=== PATIENT | female | born 1980 | race African-American/Black ===

== ENCOUNTER 2025-07-01 16:18 | Emergency (ER) | payer OTHER, SELFPAY ==
[2025-07-01 16:19] VITALS: BP 149/94; PULSE 87; RESP 16; TEMP 36.4; O2SAT 98
--- OUTSIDE RECORDS SUMMARY | 2025-07-01 18:29 | XMS_ITS | Data Portability ---
Author Organization [facility] Address [address] [place] [address] Assessment Encounter Date Assessment Date Assessment LastModified by Organization Details LastModified Time 01/01/2025 01/01/2025 Here for Spravato treatment PHQ 9 = 27 severe [email or web address] Not available 01/01/2025 23:49:46 01/08/2025 01/08/2025 Here for Spravato treatment PHQ 9 = 26 severe [email or web address] Not available 01/09/2025 00:25:05 01/15/2025 01/15/2025 Here for spravato treatment PHQ9=27 Annie was seen in the office today for Spravato treatment. Annie has a history of chronic hypertension and has had Spravato treatments canceled due to elevated blood pressures in the past. Annie states that her PCP increased her beta-alcides since her last visit. Annie's blood pressure on arrival to the office was 143/87. Blood pressure came down and was 129/86 on retake and decision was made to start treatment. 3 doses of Spravato was given. At 140 I was called to the patient's room and Annie states I do not know what is going on, I do not feel right I was unable to communicate with. Denied headaches, shortness of breath, or chest pain. Was oriented x 3. Blood pressure was 205/130 SaO2 99%. EMS notified. 1:45 blood pressure 192/126, at 1350 EMS here blood pressure 172/112 SaO2 99%. Annie speaking with EMS. 1400 blood pressure 164/112 EMS staff remains in the room, Annie declines transfer. Annie denies any headaches shortness of breath or chest pain. Alert and oriented x 3. 1408 blood pressure 164/108 SaO2 98%. 1434 EMS has left 146/95, heart rate 45. SaO2 97%. 1517 blood pressure 121/89 heart rate 102, SaO2 99%. Annie's daughter is here, discussed with her blood pressure occurrence and recommended going to hospital for evaluation. 1530 blood pressure 158/102. Annie Up and About in room and ready to go home. 1545 153/90. Discussed with Annie need to discharge from Spravato program due to severe hypertension [email or web address] Not available 01/16/2025 15:24:32 Plan of Treatment Reminders Order Date Submit Date Provider Last Modified By Organization Details Last Modified Time Details Appointments None record ed. Lab None record ed. Referral None record ed. Procedures None record ed. Surgeries None record ed. Imaging None record ed. Medication Orders None record ed. Patient TargetsNo targets recorded. Patient InstructionsNo instructions recorded. Reason for Referral None Reported. Problems Name Problem SNOMED Code Status Onset Date Resolution Date Notes Provider Name and Address Organization Details Recorded Time Severe recurrent major depression without psychotic features 93046328 Active 2024 Supriya Shah CNM, [facility] [address], [place], [address], [facility] 11:15:47 Elevated blood-pressu re reading without diagnosis of hypertension 748251064 Active 2024 Supriya Shah CNM, [facility]- [address], [place], [address], [facility] 21:54:07 Moderately severe recurrent major depression 837428590 Active 2024 Supriya Shah CNM, [facility]- [address], [place], [address], [facility] 10:48:07 Blood pressure above reference range 90844702 Active 2024 Sup[facility] Shah CNM, [facility] [address], [place], [address], [facility] 5 23:58:13 Essential hypertension 56668055 Active 2024 Supriya Shah CNM, [facility] [address], [place], [address], [facility] 5 12:29:13 Hypertensive disorder 58761107 Active 2024 Supriya Shah CNM, [facility] [address], [place], [address], [facility] 15:03:52 Problem Notes None recorded. Procedures Surgical History Date Name Laterality Status Provider Name and Address Organization Details Recorded Time 06/16/20 24 Colonoscopy completed Miranda Lynn [facility] 01/15/2025 14:14:51 hysterectomy completed [facility] 12/04/2024 09:07:31 dilation and curettage completed [facility] 12/04/2024 09:07:36 Imaging Results None recorded. Procedure Notes None recorded. Medical Equipment None Reported. Allergies Allergen ID Allergen Name Allergen Category Reaction Reaction Severity Criticality Documentation Date Start Date Code Code System Note Provider Name and Address Organization Details Recorded Time 2162 Substance with sulfonami de structure and antibacte rial mechanism of action (substanc e) medicatio n Not available Not available Not available 12/04/2024 64625 8003 SNOMED Rafia Andrews [facility] 09:04:16 2163 vancomyci n medicatio n Not available Not available Not available 12/04/2024 59789 RxNorm Rafia Andrews [facility] 09:04:22 Medications Name Sig Start Date Stop Date Status Note LastModified by Organization Details LastModified Time celecoxib 200 mg capsule active Not Available Not Available Not Available amoxicillin 500 mg capsule TAKE ONE CAPSULE BY MOUTH THREE TIMES DAILY 01/15 completed Not Available Not Available Not Available venlafaxine ER 37.5 mg capsule,ext ended release 24 hr TAKE 1 CAPSULE BY MOUTH DAILY THEN STOP 01/15 completed Not Available Not Available Not Available venlafaxine ER 75 mg capsule,ext ended release 24 hr 01/15 completed Not Available Not Available Not Available lisinopril 20 mg-hydrochl orothiazide 12.5 mg tablet TAKE 1 TABLET BY MOUTH DAILY active Not Available Not Available No t Available ibuprofen 800 mg tablet TAKE 1 TABLET BY MOUTH EVERY 8 HOURS active Not Available Not Available No t Available tizanidine 4 mg tablet active Not Available Not Available Not Available prazosin 1 mg capsule TAKE 1-2 CAPSULES AT BEDTIME FOR NIGHTMARE S active Not Available Not Available No t Available naltrexone 50 mg tablet active Not Available Not Available Not Available propranolol ER 60 mg capsule,24 hr,extended release active Not Available Not Available Not Available triazolam 0.125 mg tablet 01/15 completed Not Available Not Available Not Available venlafaxine ER 150 mg capsule,ext ended release 24 hr 01/15 completed Not Available Not Available Not Available acetaminoph en 300 mg-codeine 15 mg tablet TAKE 1 TABLET BY MOUTH EVERY 12 HOURS FOR 7 DAYS 01/15 completed Not Available Not Available Not Available peg-electro lyte solution 420 gram oral solution MIX AND DRINK DIRECTED 01/15 completed Not Available Not Available Not Available amoxicillin 500 mg tablet TAKE 1 TABLET BY MOUTH EVERY 8 HOURS 01/15 completed Not Available Not Available Not Available alprazolam 0.25 mg tablet active Not Available Not Available Not Available trazodone 100 mg tablet TAKE 1 TABLET BY MOUTH NIGHTLY 01/15 completed Not Available Not Available Not Available carbamazepi ne ER 200 mg tablet,exte nded release,12 hr TAKE 1 TABLET BY MOUTH TWICE A DAY active Not Available Not Available No t Available pantoprazol e 40 mg tablet,elena yed release TAKE 1 TABLET BY MOUTH EVERY DAY active Not Available Not Available No t Available indomethaci n 25 mg capsule active Not Available Not Available Not Available gabapentin 300 mg capsule TAKE 1 CAPSULE BY MOUTH THREE TIMES A DAY NEEDED active Not Available Not Available No t Available hydroxyzine HCl 25 mg tablet 01/15 completed Not Available Not Available Not Available bisacodyl 5 mg tablet,elena yed release TAKE DIRECTED BY OFFICE 01/15 completed Not Available Not Available Not Available alprazolam 2 mg tablet 01/15 completed Not Available Not Available Not Available zolpidem 10 mg tablet active Not Available Not Available No t Available methylpredn isolone 4 mg tablets in a dose pack TAKE 6 TABLETS ON DAY 1 DIRECTED ON PACKAGE AND DECREASE BY 1 TAB EACH DAY FOR A TOTAL OF 6 DAYS 01/15 completed Not Available Not Available Not Available sertraline 50 mg tablet TAKE 1 TABLET BY MOUTH EVERY DAY 01/15 completed Not Available Not Available Not Available bupropion HCl XL 300 mg 24 hr tablet, extended release TAKE 1 TABLET BY MOUTH EVERY DAY active Not Available Not Available No t Available bupropion HCl XL 150 mg 24 hr tablet, extended release 01/15 completed Not Available Not Available Not Available topiramate 50 mg tablet TAKE 1 TABLET BY MOUTH AT BEDTIME 01/15 completed Not Available Not Available Not Available eszopiclone 3 mg tablet active Not Available Not Available Not Available pregabalin 75 mg capsule TAKE ONE CAPSULE BY MOUTH EVERY NIGHT AT BEDTIME FOR 5 DAYS THEN 1 CAPSULE TWICE DAILY THEREAFTE R IF NO SIDE EFFECTS active Not Available Not Available No t Available Xanax active Not Available Not Availa ble Not Available Lunesta active Not Available Not Avail able Not Available lurasidone 40 mg tablet TAKE ONE (1) TABLET BY MOUTH AT BEDTIME WITH 350 CALORIES active Not Available Not Available No t Available Spravato 56 mg (28 mg x 2) nasal spray active Not Available Not Available Not Available Spravato 84 mg (28 mg x 3) nasal spray active Not Available Not Available Not Available Auvelity active Not Available Not Avai lable Not Available Vitals Date Recorded Body height Body mass index (BMI) Body weight Heart rate Heart rate Heart rate Oxygen saturation Oxygen saturation Oxygen saturation Systolic And Diastolic Systolic And Diastolic Systolic And Diastolic Provider Name and Address Organization Details Last Updated DateTime 5 170.18 cm 32.6 kg/m2 96517.2 1 g 63 /min 48 /min 47 /min 99 % 99 % 99 % 118/76 mm[Hg] 154/84 mm[Hg] 157/96 mm[Hg] Rafia Andrews [facility] 5 13:04:16 Date Recorded Body height Body mass index (BMI) Body weight Heart rate Oxygen saturation Heart rate Oxygen saturation Heart rate Oxygen saturation Systolic And Diastolic Systolic And Diastolic Systolic And Diastolic Systolic And Diastolic Systolic And Diastolic Provider Name and Address Organization Details Last Updated DateTime 5 170.18 cm 32.8 kg/m2 23638.2 4 g 46 /min 98 % 54 /min 94 % 57 /min 99 % 150/97 mm[Hg] 137/87 mm[Hg] 181/110 mm[Hg] 154/98 mm[Hg] 148/103 mm[Hg] Supriya Shah CNM, [facility] [address], [place], [address] [place] [address] 5 23:48:14 Date Recorded Body height Body mass index (BMI) Body weight Heart rate Heart rate Oxygen saturation Oxygen saturation Oxygen saturation Systolic And Diastolic Systolic And Diastolic Systolic And Diastolic Provider Name and Address Organization Details Last Updated DateTime 5 170.18 cm 32.7 kg/m2 77925.8 1 g 83 /min 69 /min 99 % 98 % 99 % 124/91 mm[Hg] 149/89 mm[Hg] 151/101 mm[Hg] Supriya Shah CNM, [facility] [address], [place], [address] [place] [address] 5 00:35:05 Date Recorded Body height Systolic And Diastolic Systolic And Diastolic Systolic And Diastolic Systolic And Diastolic Provider Name and Address Organization Details Last Updated DateTime 5 170.18 cm 142/90 mm[Hg] 152/103 mm[Hg] 142/96 mm[Hg] 146/94 mm[Hg] Supriya Shah CNM, [facility] [address], [place], [address] [place] [address] 5 12:28:46 Date Recorded Body mass index (BMI) Body weight Heart rate Oxygen saturation Oxygen saturation Oxygen saturation Oxygen saturation Systolic And Diastolic Systolic And Diastolic Systolic And Diastolic Systolic And Diastolic Systolic And Diastolic Systolic And Diastolic Systolic And Diastolic Systolic And Diastolic Systolic And Diastolic Systolic And Diastolic Systolic And Diastolic Systolic And Diastolic Provider Name and Address Organization Details Last Updated DateTime 5 32.6 kg/m2 55200.6 5 g 50 /min 99 % 99 % 98 % 98 % 143/87 mm[Hg] 154/103 mm[Hg] 129/86 mm[Hg] 205/130 mm[Hg] 192/126 mm[Hg] 172/112 mm[Hg] 164/112 mm[Hg] 164/108 mm[Hg] 146/95 mm[Hg] 121/89 mm[Hg] 158/102 mm[Hg] 153/90 mm[Hg] Supriya Shah, CNWill, [facility] [address], [place], [address] [facility] 15:42:25 Date Recorded Body height Provider Name an d Address Organization Details Last Updated DateTime 01/15/2025 170.18 cm Miranda Lynn [facility] 01/15/2025 14:13:25 Social History Question Answer Notes LastModified by Organizat ion Details LastModified Time Tobacco Smoking Status Never Smoker Rafia Andrews [facility] 12/04/2024 09:06:53 What Is Your Level Of Caffeine Consumption? Moderate [email or web address] Information not available 12/04/2024 Which Illicit Or Recreational Drugs Have You Used? MJ [email or web address] Information not available 12/04/2024 How Many Times Per Week Do You Exercise? 1-2 Times Per Week Information not available 12/04/2024 Are There Any Guns Present In Your Home? No [email or web address] Information not available 12/04/2024 Do You Feel Safe In Your Home? Yes Information not available 12/04/2024 Sex: Unknown Functional Status Question Answer Note LastModified by Organizat ion Details LastModified Time Do you use any illicit or recreational drugs? Yes [email or web address] Information not available 12/04/2024 Do you or have you ever used any other forms of tobacco or nicotine? No Information not available 12/04/2024 What is your level of alcohol consumption? None [email or web address] Information not available 12/04/2024 What is your exercise level? Occasional [email or web address] Information not available 12/04/2024 Mental Status Question Answer Note LastModified by Organization D etails LastModified Time Do you feel stressed (tense, restless, nervous, or anxious, or unable to sleep at night)? [id number] [email or web address] Information not available 12/04/2024 Family History Nothing Reported. Medical History Condition Response Drug/Latex Allergies/Reactions Y Depression Y Anxiety Disorder Y Arthritis Y Acid Reflux (GERD) Y Hypertension Y Gynecological HistoryNo gynecological history recorded. Obstetrics History GPAL:G 3 P 1 0 2 1 Type Value Full Term 1 Induced 1 Spontaneous 1 Living 1 Total 3 Past Encounters Encounter ID Performer Location Encounter Start Date Encounter Closed Date Diagnosis/Indication Diagnosis SNOMED-CT Code Diagnosis ICD10 Code Diagnosis IMO Codes Diagnosis Note [id number] Supriya Shah CNM, [facility] Main Office [address] [place] [address] 12/04/2024 08:59:13 12/10/2024 10:34:48 Severe recurrent major depression without psychotic features 22587732 F33.2 [id number] The patient presents with symptoms of depression including feelings of worthlessn ess, hopelessne ss, and helplessne ss. She has a history of multiple antidepres jeet trials including Effexor, Prozac, Zoloft, trazodone, and Seroquel. She is currently taking Auvelity (recently switched from Wellbutrin ). I discussed Spravato (esketamin e) as a treatment option for treatment- resistant depression , explaining the administra tion process, dosing schedule, and monitoring requiremen ts.continu e present treatment of auvelitySu bmit for insurance approval for Spravato treatmentR equest additional medical records if needed to document history of antidepres jeet trialsInit ial dosing plan: 56 mg (two sprays) for the first week, then 84 mg (three sprays) thereafter Treatment schedule: twice weekly initiallyM onitor blood pressure before and during each treatment (current BP 148/96 is too high to start treatment) [facility] tsPatient advised to abstain from marijuana and alcohol prior to treatments [id number] Supriya Shah CNM, [facility] Main Office [address] [facility] [place] [address] 12/18/2024 13:49:58 12/20/2024 10:25:42 Severe recurrent major depression without psychotic features 03088220 F33.2 [id number] Annie is here for her first Spravato treatment. Unable to do Spravato treatment due to elevated blood pressure. Encouraged limiting caffeine prior to next treatment. Also encouraged reaching out to primary care physician for treatment of hypertensi on. Elevated blood-pressure reading without diagnosis of hypertension 822338322 R03.0 [id number] encouraged contacting pcp for treatment of bp [id number] Supriya Shah CNM, [facility] Main Office [address] [address] 12/20/2024 10:51:01 12/23/2024 10:47:01 Severe recurrent major depression without psychotic features 30865157 F33.2 [id number] Patient demonstrat ed severe depression symptoms on PHQ-9 assessment , endorsing symptoms occurring all the time including suicidal ideation without a specific plan. I administer ed intranasal esketamine (Spravato) 56mg total Patient tolerated the administra tion despite some discomfort with the medication dripping down her throat, which I reassured her was normal.Con tinue weekly esketamine treatments with plan to increase to 84mg (three sprays) at next week's sessionMon itor for 2 hours following administra tion for safety and side effectsSch edule next treatment for monday and mondayMoni tor treatment response and side [id number] dose recieved at 0957, 2nd dose recieved at 1002VSS, SAO2 98-99%Jerry es any dissociati on, did state experienci ng a drunk feeling that lasted for approx 30 minutes after the second dose was givenTiffa ny left at 1250. Chief [facility] Service MitchTotal time of monitoring was 3 hours [id number] Supriya Shah CNM, [facility] Main Office [address] [place] [address] 12/25/2024 13:48:13 12/26/2024 12:13:32 Moderately severe recurrent major depression 952935909 F33.2 02367214 The patient continues to experience significan t depressive symptoms including anhedonia, depressed mood, sleep disturbanc e, fatigue, poor concentrat ion, and occasional passive suicidal ideation. She describes feeling mentally exhausted and reports having little motivation for daily activities . Today we proceeded with her second Spravato treatment, increasing the dosage to 84 mg (three devices) as planned. Administer ed Spravato 84 mg (three devices) under supervisio n Explained that 84 mg is the maximum recommende d dosage for Spravato Provided guidance on proper administra tion technique Monitored patient during and after administra tion Will continue to assess response to treatment at subsequent visits Encouraged patient to maintain regular sleep schedule despite difficulti es Discussed importance of regular eating patterns for mood stabilizat ionMonitor for 2 hours following administra tion for safety and side effectsSch edule next treatment for monday and mondayMoni tor treatment response and side effects 1st dose recieved at 1242, 2nd dose recieved at 1305, third dose at 1313VSS, SAO2 98-99%Jerry es any dissociati on,Annie left at 1455. Chief [facility] Service Carlos.Tota l time of monitoring was 253 minutes [id number] Supriya Shah CNM, [facility]- Main Office [address] [place] [address] 12/27/2024 10:46:00 12/30/2024 06:28:15 Moderately severe recurrent major depression 252257568 F33.2 92745130 The patient continues to experience significan t depressive symptoms including anhedonia, depressed mood, sleep disturbanc e, fatigue, poor concentrat ion, and occasional passive suicidal ideation. She describes feeling mentally exhausted and reports having little motivation for daily activities . Today we proceeded with her second Spravato treatment, increasing the dosage to 84 mg (three devices) as planned.Ad ministered Spravato 84 mg (three devices) under supervisio nExplained that 84 mg is the maximum recommende d dosage for SpravatoPr ovided guidance on proper administra tion techniqueM onitored patient during and after administra tionWill continue to assess response to treatment at subsequent visitsEnco uraged patient to maintain regular sleep schedule despite difficulti esMonitor for 2 hours following administra tion for safety and side effectsMon itor treatment response and side effects 1st dose recieved at 0952, 2nd dose recieved at 0957, third dose at 1002VSS, SAO2 99-100%Den ies any dissociati on,Annie left at 1204. Chief [facility] Service Jenifer al time of monitoring was 138 minutes [id number] Supriya Shah CNM, [facility]- Main Office [address] [place] [address] 01/01/2025 10:35:47 01/02/2025 07:54:43 Severe recurrent major depression without psychotic features 71125264 F33.2 08075925 Patient demonstrat ed severe depression symptoms on PHQ-9 assessment ,Continue twice weekly esketamine treatments . Unable to come to treatment on for 2 hours following administra tion for safety and side effectsSch edule next treatment for monday and treatment response and side effectsTif kelley's first blood pressure on arrival to office was 164/94, repeat was 150/97. Annie was allowed to rest and blood pressure was repeated was 137/87 at 10 AM blood oxygenatio n was 98%.1st dose recieved at 1028, 2nd dose recieved at 1035At 1110 BP was 181/110 with an SaO2 of 94. blood pressure was repeated at 1150 and was 154/98At end of treatment blood pressure was 148/103VSS , SAO2 94-99%Jerry es any dissociati onTiffany left at 1241. Chief Optometry Service CurtisTota l time of monitoring was 161 minutes Blood pres sure above reference range 82716670 R03.0 [id number] encouraged contacting pcp for treatment of bp. Annie was seen by PCP last week and restarted on blood pressure medication , to contact PCP for increase in dosage [id number] Supriya Shah CNM, [facility] Main Office [address] [place] [address] 01/08/2025 13:36:01 01/09/2025 06:32:50 Severe recurrent major depression without psychotic features 80518040 F33.2 [id number] Patient demonstrat ed severe depression symptoms on PHQ-9 assessment , Monitor treatment response and side [id number] dose recieved at 1248, 2nd dose recieved at 1253, third dose received at 1300VSS, SAO2 98-99%Jerry es any dissociati onTiffany left at 1509 . Chief [facility]ometry Service [employer] ServicestisTota l time of monitoring was 146 minutes [id number] Supriya Shah CNM, [facility] Main Office [address] [facility] [place] [address] 01/10/2025 11:09:04 01/13/2025 06:29:12 Essential hypertension 93675807 I10 17886 Bp's 142-152/90 -103Sprava to treatment not done due ot elevated bp'sencour aged contacting pcp for treatment of bp. Annie was seen by PCP la few week ago and restarted on blood pressure medication , to contact PCP for increase in dosagewill return on monday for treatment [id number] Supriya Shah CNM, [facility]- Main Office [address] [place] [address] 01/15/2025 13:34:11 01/20/2025 06:41:29 Severe recurrent major depression without psychotic features 23087162 F33.2 [id number] Patient demonstrat ed severe depression symptoms on PHQ-9 assessment , Monitor treatment response and side [id number] dose recieved at 1313, 2nd dose recieved at 1320, third dose received at 2923TLV9 97-99%Jerry es any dissociati onTiffany left at 1509 . Chief [facility] Service EmaniTotal time of monitoring was 181 minutes Hypertensive disorder 38 [id number] I10 [id number] evaluated by ems Health Concerns Section Related Observation LastModified by Organization Detai ls LastModified Time None Recorded Concern Status LastModified by Organization Details LastModified Time None Recorded Advance Directives Directive None Recorded Payers Insurance Date Sequence Insurance Name Policy Number Policy Miranda Covered Member ID Miranda Member ID Guarantor Name 01/20/2025 1 [facility] ON OR AFTER 01/14/21 (MEDICAID REPLACEMENT - HMO) Annie Caputo [id number] Annie Caputo Notes Date Note Type Note Provider Name and Address Organization Details Recorded Time 12/27/2024 text/html Here for Spravato treatment.Denies feeling any different, no improvement. continues to experience feelings of worthlessness, hopelessness and helplessness. continues to endorse feelings of Passive SI, Denies plan or intent. Denies any AH or VH Supriya Shah CNM, [facility]- [address], [place], [address], [facility] 12/27/2024 22:05:47 01/01/2025 text/html Here for Spravato treatment.Denies feeling any different, no improvement. continues to experience feelings of worthlessness, hopelessness and helplessness. continues to endorse feelings of Passive SI, Denies plan or intent. Denies any AH or VH Supriya Shah CNM, [facility]- [address], [place], [address], [facility] 01/02/2025 00:03:41 01/08/2025 text/html Met with Annie today. Annie is here for Spravato treatment. Annie states her mood to be not good. She continues to experience feelings of worthlessness, hopelessness, and helplessness. She denies any active SI but does endorse feelings of passive SI, I am just tired, I just want to go to sleep and not wake up . Denies plan or intent. Denies any HI. Denies any auditory hallucinations or visual hallucinations. Supriya Shah CNM, [facility] [address], [place], [address], [facility] 01/09/2025 00:37:15 01/15/2025 text/html Annie is here for Spravato treatment. Annie states her mood to be s ocks, tired. Continues to experience feelings of worthlessness, hopelessness, and helplessness. States she was seen by her psychiatry group prior to this visit, and states no changes to medications. Sleep is not good, taking up to an hour to fall asleep. States she wishes to live with someone else. Denies any active SI or HI. Denies any auditory hallucinations or visual hallucinations Supriya Shah CNM, [facility]- [address], [place], [address], [facility] 01/16/2025 15:51:41 OBGyn Episode No OBEpisode recorded.
--- OUTSIDE RECORDS SUMMARY | 2025-07-01 18:29 | XMS_ITS | Encounter Summary ---
Author Organization [facility] Healthcare Address [address] [place] [address] Care Team Providers Care Cytology Technologist Name Role Phone Lane Cunningham MD Unavailable [phone] Miranda Roy Primary Care Provider + Encounter Details Date Type Department Care Team (Late st Contact Info) Description 03/19/2025 Telephone [facility] [address] [facility] [address] [place] [address] Jeromy Ureña MD [address] [place] [address] Social History Tobacco Use Types Packs/Day Years Used Date Smoking Tobacco: Never Passive Smoke Exposure: Past Smokeless Tobacco: Never Alcohol Use Standard Drinks/Week Comments Never 0 (1 standard drink = 0.6 oz pur e alcohol) Overall Financial Resource Strain (CARDIA) Answe r Date Recorded How hard is it for you to pa y for the very basics like food, housing, medical care, and heating? Hard 11/16/2022 PHQ-2 Answer Date Recorded PHQ-2 Total Score (If total score is 3 or more points, staff should administer the PHQ-9) 0 02/26/2025 PRAPARE - Transportation Answer Date Re corded In the past 12 months, has l ack of transportation kept you from medical appointments or from getting medications? No 09/2022 In the past 12 months, has l ack of transportation kept you from meetings, work, or from getting things needed for daily living? No 11/16/2022 PHQ-9 Answer Date Recorded PHQ-9 Total Score 13 11/21/2024 AUDIT-C Answer Date Recorded Q1: How often do you have a drink containing alcohol? Never 03/21/2025 Q2: How many drinks containi ng alcohol do you have on a typical day when you are drinking? Patient does not drink Q3: How often do you have si x or more drinks on one occasion? Never 03/21/2025 Personal Safety Answer Date Recorded Have you ever been in or are you currently in a harmful physical or emotional relationship or is someone making you feel afraid or unsafe? 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 Never 03/21/2025 12:36 PM Ida Taylor RN Q2: How many drinks containing alcohol do you have on a typical day when you are drinking? Patient does not drink 03/21/2025 12:36 PM Ida Taylor RN Q3: How often do you have six or more drinks on one occasion? Never 03/21/2025 12:36 PM Ida Taylor RN documented as of this encounter Plan of Treatment Not on file documented as of this encounter Goals Goal Patient Goal Type Associated Problems Recent Progress Patient-Stated? Author CCM Chronic Pain Care Plan Chronic Care Management No change(06/26 10:36 AM CHILD CARE TEACHER) No Ida Chandler RN Note: Problem: Chronic Pain Goals: 1. Minimize further functional decline 2. Maximize quality of life 3. Control pain Strategies: - Activity/exercise program recommendation - Conservative stepwise pain medicine strategy with multi-disciplinary approach - Recommend healthy lifestyle strategies and compensatory methods as needed documented as of this encounter Visit Diagnoses Not on filedocumented in this encounter Care Teams Cytology Technologist Relationship Specialty Start Date End Date Miranda Roy PA PCP - General Family Medicine 11/21/24 Lane Cunningham MD Consulting Physician Obstetrics and Gynecology 06/23/21 documented as of this encounter
--- OUTSIDE RECORDS SUMMARY | 2025-07-01 18:30 | XMS_ITS | Clinical Summary ---
Author Organization [facility] Address [address] [place] [address] Care Team Providers Care Dandy Tender Name Role Phone Lane Cunningham MD Unavailable [phone] Miranda Roy Primary Care Provider + Allergies Active Allergy Reactions Criticality Noted Date Comments Sulfa (Sulfonamide Antibiotics) Unknown,Rash Medium Rash Vancomycin Itching High 10/07/2020 Itching Venlafaxine Delusions Medium 01/15/2025 Medications lisinopril-hydr oCHLOROthiazide (ZESTORETIC) 20-12.5 mg per tabletIndicatio ns:hypertension Take 1 tablet by mouth daily 90 tablet 1 12/20/19 25 026 Active Additional Information Patient not taking.Reported on 06/26/2025 blood pressure monitor kitIndications: Primary hypertension 1 Units daily 1 kit 12/21/19 25 Active Additional Information Patient not taking.Reported on 06/26/2025 miscellaneous medical supply misc 1 Units daily as needed (For lightheadedness and dizziness) 1 each 01/11/20 25 Active clonazePAM (KlonoPIN) 1 mg tablet Take 1 tablet (1 mg total) by mouth 2 (two) times a day 04/03/20 25 Active naltrexone (DEPADE) 50 mg tablet Take 1 tablet (50 mg total) by mouth daily 04/03/20 25 Active propranolol LA (INDERAL LA) 160 mg 24 hr capsuleIndicati ons:Hypertensio n, essential Take 1 capsule (160 mg total) by mouth daily 90 capsule 04/04/20 25 Active Additional Information Patient not taking.Reported on 06/26/2025 amLODIPine (NORVASC) 2.5 mg tabletIndicatio ns:Hypertension , essential Take 1 tablet (2.5 mg total) by mouth daily 30 tablet 2 04/04/20 25 Active Additional Information Patient not taking.Reported on 06/26/2025 Auvelity 45-105 mg tablet, IR & ER, biphasic TAKE 1 TABLET BY MOUTH TWICE DAILY DIRECTED 04/03/[address] (CYMBALTA) 30 mg capsule 04/03/20 Active eszopiclone (LUNESTA) 3 mg tabletIndicatio ns:Insomnia Take 1 tablet (3 mg total) by mouth daily Take immediately before bedtime 30 tablet 5 05/22/20 Active cyclobenzaprine (FLEXERIL) 10 mg tabletIndicatio ns:Fibromyalgia Take 1 tablet (10 mg total) by mouth 3 (three) times a day 90 tablet 06/04/20 25 Active celecoxib (CeleBREX) 200 mg capsuleIndicati ons:Pain Take 1 capsule (200 mg total) by mouth daily with breakfast 30 capsule 2 03/21/20 25 025 Discontin ued(Patie nt Reported) baclofen (LIORESAL) 10 mg tabletIndicatio ns:Sacroiliitis Take 1 tablet (10 mg total) by mouth 3 (three) times a day as needed for muscle spasms 60 tablet 04/09/20 25 025 Discontin ued(Patie nt Reported) eszopiclone (LUNESTA) 2 mg tabletIndicatio ns:Insomnia Take 1 tablet (2 mg total) by mouth nightly Take immediately before bedtime 30 tablet 05/05/20 25 025 Discontin ued(Patie nt Reported) Active Problems Patient Care Coordination No te Formatting of this note migh t be different from the original. [employer] has PCP listed as Faye Parent as of 12/28/20. Problem Noted Date Diagnosed Date Lung nodules 05/22/2025 Assessment & Plan (05/22/2025 2:05 PM ORACLE DATABASE ARCHITECT): One of the lung nodules has increased to 7 mm in size and I repeat another chest CT in 4 months. I did recommend that she stopped smoking marijuana. Cannabis dependence, uncomplicated 02/27/2025 PTSD (post-traumatic stress disorder) 02/26/2025 Assessment & Plan (02/27/2025 1:19 PM CDT): The patient has severe psychiatric co-morbidities and history of previous and present substance abuse. Including ETOH and marijuana. She is seeing psych which has started Auvelity. Which contains dextromethorphan. I do not think it is a good idea for patient to be on multiple controlled substances: Lunesta, Auvelity, THC. This is a breach in CSA contract - however, given the circumstances and risk of severe psychiatric decompensation, I will continue 2mg dose for now. In order to maintain harm reduction. The patient is encouraged strongly to come back for frequent follow-up. And downtitration I discussed non-pharmacology at great length with the patient, as well as provided active listening and motivational interviewing. We discussed her stressors at great length, as well as an overall strategy. She needs to stop THC. Continue ETOH sobriety. Orders: eszopiclone (LUNESTA) 2 mg tablet; Take 1 tablet (2 mg total) by mouth daily Take immediately before bedtime Generalized anxiety disorder 11/21/2024 Assessment & Plan (02/27/2025 1:19 PM CDT): The patient has severe psychiatric co-morbidities and history of previous and present substance abuse. Including ETOH and marijuana. She is seeing psych which has started Auvelity. Which contains dextromethorphan. I do not think it is a good idea for patient to be on multiple controlled substances: Lunesta, Auvelity, THC. This is a breach in CSA contract - however, given the circumstances and risk of severe psychiatric decompensation, I will continue 2mg dose for now. In order to maintain harm reduction. The patient is encouraged strongly to come back for frequent follow-up. And downtitration I discussed non-pharmacology at great length with the patient, as well as provided active listening and motivational interviewing. We discussed her stressors at great length, as well as an overall strategy. She needs to stop THC. Continue ETOH sobriety. Orders: eszopiclone (LUNESTA) 2 mg tablet; Take 1 tablet (2 mg total) by mouth daily Take immediately before bedtime Assessment & Plan (02/13/2025 8:01 PM CDT): Chronic, not at goal Pt is following with psychiatrist Assessment & Plan (11/21/2024 10:38 AM CDT): Chronic anxiety managed with alprazolam, not ideal due to alcohol use disorder. Alprazolam and Lunesta combination poses respiratory risk. No current psychiatric care. - Refer to psychiatrist for medication management and potential Spravato treatment. - Provide contact information for a clinic in [place] that accepts walk-ins for psychiatric care. - Educated patient that she will need a multi-disciplinary approach including psychiatrist and therapist. - Initiate tapering of alprazolam: continue 1 mg in the morning, reduce nighttime dose to 0.5 mg. Written alprazolam taper given to patient, decreasing dose every 2 weeks until d/c - Controlled Substance Agreement reviewed with patient in office. Signed by patient. [place] PDMP reviewed. No suspicious activity. Patient understands risks of use of medication. - Conduct urine drug screen: Positive for THC, benzo, and oxycodone (likely triggered from naltrexone use). Educated patient on results and discussed use of illicit substances as a warning today in office. - Advise against the use of marijuana. Orders: ALPRAZolam (XANAX) 1 mg tablet; 1mg in the AM, 0.5mg in the PM Ambulatory referral to Psychiatry; Future CBC with auto differential; Future Comprehensive metabolic panel; Future Lipid panel; Future Thyroid Function Barton; Future Hemoglobin A1c; Future Albumin Creatinine Ratio, Urine; Future Obstructive sleep apnea 04/25/2024 Assessment & Plan (05/22/2025 2:04 PM ORACLE DATABASE ARCHITECT): The patient continues to benefit from the auto titrating CPAP unit with a range of 7-15 cm water pressure for ongoing symptoms MARIAH. Her DME supplier is [facility] home care services. I will send an order to have them show her a variety of new styles of CPAP mask to see if this will improve her compliance. Assessment & Plan (02/27/2025 1:19 PM CDT): The patient has severe psychiatric co-morbidities and history of previous and present substance abuse. Including ETOH and marijuana. She is seeing psych which has started Auvelity. Which contains dextromethorphan. I do not think it is a good idea for patient to be on multiple controlled substances: Lunesta, Auvelity, THC. This is a breach in CSA contract - however, given the circumstances and risk of severe psychiatric decompensation, I will continue 2mg dose for now. In order to maintain harm reduction. The patient is encouraged strongly to come back for frequent follow-up. And downtitration I discussed non-pharmacology at great length with the patient, as well as provided active listening and motivational interviewing. We discussed her stressors at great length, as well as an overall strategy. She needs to stop THC. Continue ETOH sobriety. Orders: eszopiclone (LUNESTA) 2 mg tablet; Take 1 tablet (2 mg total) by mouth daily Take immediately before bedtime Assessment & Plan (11/21/2024 10:38 AM CDT): As above, encouraged use of CPAP Seeing sleep medicine provider Assessment & Plan (10/21/2024 9:29 AM CDT): Due to feeling like the pressure is not strong enough, I have increased the pressure once again to 7-15 cm water pressure. I have also ordered a [employer] F30 I mask. I asked the patient call into the office if she does not hear from [employer] company within 2 weeks. I have asked the patient to wear the CPAP while sleeping at least 4 hours a night on 70% of the nights. [facility] home Assessment & Plan (04/25/2024 11:53 AM CDT): Due to the pressure feeling like the pressure is not strong enough initially I would change the patient's CPAP pressure to 7-15 cm water pressure. I did speak with regarding the sleep paralysis. He did feel that it could be related to getting a better quality arresting getting to REM sleep more. Controlled substance agreement signed 01/25/2024 S/P laparoscopic hysterectomy 12/19/2022 Overview (12/20/2022): 12/20/22, POD#1: - RA-TLH/BS - doing well post-op - pain well controlled - VSS, afebrile - stable H&H - suspect mostly dilutional effect; has minimal to no bleeding overnight - tolerating general diet - voiding on own - VTE proph: ambulation and SCDs - Dispo: antcipate D/C home today; restrictions and precautions discussed Marijuana abuse 10/31/2022 History of suicide attempt 09/26/2022 Assessment & Plan (02/27/2025 1:19 PM CDT): The patient has severe psychiatric co-morbidities and history of previous and present substance abuse. Including ETOH and marijuana. She is seeing psych which has started Auvelity. Which contains dextromethorphan. I do not think it is a good idea for patient to be on multiple controlled substances: Lunesta, Auvelity, THC. This is a breach in CSA contract - however, given the circumstances and risk of severe psychiatric decompensation, I will continue 2mg dose for now. In order to maintain harm reduction. The patient is encouraged strongly to come back for frequent follow-up. And downtitration I discussed non-pharmacology at great length with the patient, as well as provided active listening and motivational interviewing. We discussed her stressors at great length, as well as an overall strategy. She needs to stop THC. Continue ETOH sobriety. Orders: eszopiclone (LUNESTA) 2 mg tablet; Take 1 tablet (2 mg total) by mouth daily Take immediately before bedtime Dysmenorrhea 09/09/2022 Submucous and subserous leiomyoma of uterus 12/17 Overview (01/13/2022): Added automatically from request for surgery [id number] Menorrhagia with irregular cycle 01/12/2022 Intramural, submucous, and subserous leiomyoma o f uterus 01/12/2022 Iron deficiency anemia due to chronic blood loss 01/10/2022 Assessment & Plan (01/10/2022 3:34 PM CDT): Will check iron level Will start iron once we have the results Keep follow up with her [facility] Update me with any changes Call for questions Class 1 obesity with serious comorbidity and body mass index (BMI) of 32.0 to 32.9 in adult 01/10/2022 Assessment & Plan (12/19/2024 1:59 PM CDT): Assessment & Plan (09/26/2022 3:40 PM CDT): BMI Follow-up includes: nutrition counseling. Assessment & Plan (01/10/2022 4:19 PM CDT): BMI Follow-up includes: nutrition counseling. High liver transaminase level 07/05/2021 Assessment & Plan (11/21/2024 10:38 AM CDT): Repeat labs Orders: CBC with auto differential; Future Comprehensive metabolic panel; Future Lipid panel; Future Thyroid Function Barton; Future Hemoglobin A1c; Future Albumin Creatinine Ratio, Urine; Future Transaminitis 06/25/2019 Assessment & Plan (01/10/2022 4:16 PM CDT): Improving Encouraged this is most likely in relation to her cutting down alcohol Update me with any changes or concerns History of alcohol abuse 08/29/2018 Assessment & Plan (02/27/2025 1:19 PM CDT): The patient has severe psychiatric co-morbidities and history of previous and present substance abuse. Including ETOH and marijuana. She is seeing psych which has started Auvelity. Which contains dextromethorphan. I do not think it is a good idea for patient to be on multiple controlled substances: Lunesta, Auvelity, THC. This is a breach in CSA contract - however, given the circumstances and risk of severe psychiatric decompensation, I will continue 2mg dose for now. In order to maintain harm reduction. The patient is encouraged strongly to come back for frequent follow-up. And downtitration I discussed non-pharmacology at great length with the patient, as well as provided active listening and motivational interviewing. We discussed her stressors at great length, as well as an overall strategy. She needs to stop THC. Continue ETOH sobriety. Orders: eszopiclone (LUNESTA) 2 mg tablet; Take 1 tablet (2 mg total) by mouth daily Take immediately before bedtime Assessment & Plan (01/10/2025 3:45 PM CDT): Sustained remission since 2023 Assessment & Plan (11/21/2024 10:38 AM CDT): Alcohol use disorder in remission for 4-5 years. Concern about alprazolam use given substance abuse history. - Continue naltrexone. - Refer to psychiatrist for comprehensive management. Assessment & Plan (01/10/2022 4:12 PM CDT): Encouraged that she is doing great with this change should she is making Encouraged to look at and help find a sponsor Update me with any changes or concerns Severe recurrent major depression 08/29/2018 Assessment & Plan (01/10/2025 3:45 PM CDT): I discussed with the patient the dangers of significant THC use versus more controlled THC use for pain and mental health. She expresses understanding, she will think about trying to lower the amount. I think this is also confounding her psychiatric treatment given the uncertainty of concentration and effectiveness of psychoactive tetrahydrocannabinol in commercial marijuana Assessment & Plan (12/19/2024 1:59 PM CDT): Assessment & Plan (11/21/2024 10:38 AM CDT): Chronic depression inadequately controlled on current medications. Interest in Spravato due to failure of two oral medications. - Refer to psychiatrist for evaluation and potential Spravato treatment. - Provide contact information for a clinic in [place] that accepts walk-ins for psychiatric care. Orders: Ambulatory referral to Psychiatry; Future CBC with auto differential; Future Comprehensive metabolic panel; Future Lipid panel; Future Thyroid Function Barton; Future Hemoglobin A1c; Future Albumin Creatinine Ratio, Urine; Future Assessment & Plan (01/10/2022 4:13 PM CDT): Currently prescribed Seroquel, trazodone, Lexapro, Atarax The patient is interested in Vyvanse being added to her regimen, but I let her know that she would have to review this with her psychiatrist I also reviewed with her that any ADHD medication would often interact with the medication she is currently on Encouraged to follow-up with her psychiatrist I also gave her the information about [facility]/ if she would like to look into them Update me with any changes or concerns Call for questions Assessment & Plan (07/05/2021 4:18 PM ORACLE DATABASE ARCHITECT): Reviewed how severe her depression, anxiety are I am concerned about possible bipolar given the medications she has been on in the past I am concerned that she is drinking 3 large alcoholic drinks daily Although no plan for suicide, she has tried hurting herself in the past, and has constant thoughts of not wanting to be here The patient reports that she is safe to drive herself to [facility] I have asked her to go from here to [facility] I did let her know to follow-up with us after discharge I discussed with her that depending on her medications, we may need a psychiatrist or a may be able to manage her medications. It would depend on what she is taking Update us with any concerns Call for questions Primary insomnia 12/13/2017 Assessment & Plan (05/22/2025 2:05 PM ORACLE DATABASE ARCHITECT): The patient is still having insomnia and I will increase her Lunesta dose back to 3 mg p.o. q.h.s. Assessment & Plan (11/21/2024 10:38 AM CDT): MARIAH Managed with CPAP, inconsistent use due to allergies and illness. Lunesta and alprazolam combination poses respiratory risk. - Encourage consistent use of CPAP. - Continue current Lunesta regimen for now, with potential future tapering. Pt agreeable. Will start tapering Lunesta after alprazolam taper Orders: CBC with auto differential; Future Comprehensive metabolic panel; Future Lipid panel; Future Thyroid Function Barton; Future Hemoglobin A1c; Future Albumin Creatinine Ratio, Urine; Future Assessment & Plan (10/21/2024 9:31 AM CDT): Currently managed by primary care with Lunesta 3 mg nightly. I instructed the patient that I would not feel comfortable prescribing a sleep aid unless consistent usage with the CPAP can be seen on her compliance reports. I also instructed the patient the risk of taking asleep aid while not adequately treating the obstructive sleep apnea may result in a decrease respiratory drive/ increase number of MAIRAH events. Cognitive behavior therapy for insomnia is the gold standard for treating insomnia. The patient verbalized understanding Assessment & Plan (01/23/2024 12:25 PM CDT): The patient presents with primary insomnia which I suspect is related to her depression. I did ask her to call her primary care physician for a referral to see a psychiatrist to manage the depression. We also discussed cognitive behavioral therapy for insomnia and I did recommend an exercise program as well. She will follow up here in 6 weeks. Hypertension 09/20/2017 Overview (07/05/2021): Transitioned From: Elevated blood pressure reading without diagnosis of hypertension Assessment & Plan (02/13/2025 8:01 PM CDT): Blood pressure elevated at 160/102 mmHg. Non-compliance with propranolol dosage. Occasional headaches likely due to hypertension and stress. - Increase propranolol to 120 mg and send prescription to [facility]. - Encourage obtaining a home blood pressure cuff for regular monitoring. - Schedule follow-up appointment in two weeks to recheck blood pressure. - Bring home blood pressure cuff to next appointment to verify accuracy. Orders: propranolol LA (INDERAL LA) 120 mg 24 hr capsule; Take 1 capsule (120 mg total) by mouth daily For blood pressure and anxiety. To be taken daily. Assessment & Plan (01/10/2025 3:45 PM CDT): We discussed adherence with medication. I help the patient's set up alarms. She did take her blood pressure medication today, her blood pressure is still elevated. For now I will increase her propranolol from 60-120 mg. She is already going down on her benzodiazepine and I think this will help her. Assessment & Plan (12/19/2024 1:59 PM CDT): Orders: lisinopril-hydroCHLOROthiazide (ZESTORETIC) 20-12.5 mg per tablet; Take 1 tablet by mouth daily blood pressure monitor kit; 1 Units daily Basic metabolic panel; Future Assessment & Plan (11/21/2024 10:38 AM CDT): Chronic, stable condition. Continue current medication regimen: propranolol Orders: CBC with auto differential; Future Comprehensive metabolic panel; Future Lipid panel; Future Thyroid Function Barton; Future Hemoglobin A1c; Future Albumin Creatinine Ratio, Urine; Future Assessment & Plan (07/05/2021 4:19 PM ORACLE DATABASE ARCHITECT): Blood pressure elevated today, but visibly tearful, anxious Will recheck after she is evaluated by [facility] Update me with any changes or concerns Call for questions or concerns Migraine headache 09/20/2017 Assessment & Plan (01/10/2022 4:12 PM CDT): Currently under poor control, but with multiple medications for her mental health Will check MRI for possible pathology Encouraged to consider a medication like metoprolol to help control her daily headaches Further guidance once we have the results Update me with any changes or concerns Attention and concentration deficit 08/07/2012 Resolved Problems Problem Noted Date Diagnosed Date Resolved Date Screening for colon cancer 06/25/2024 0 11/21/2024 Encounter for screening for malignant neoplasm of colon 06/20/2024 11/21/2024 Snoring 01/23/2024 04/25/2024 Assessment & Plan (01/23/2024 12:26 PM CDT): The patient has a history of snoring with the insomnia and I have recommended proceeding with a nocturnal polysomnogram with a split night protocol if necessary and no MSLT to determine if there is any underlying sleep-related breathing problem. Alcohol withdrawal syndrome without complication 04/14/2023 11/21/2024 Hypopotassemia 04/14/2023 02/26/2025 Fever 10/31/2022 11/21/2024 Sepsis 10/31/2022 11/21/2024 Alcohol withdrawal syndrome, uncomplicated 10/06/2022 11/21/2024 Anxiety 09/26/2022 11/21/2024 Alcoholic hepatitis without ascites 07/05/2021 11/21/2024 Chronic alcoholism 07/05/2021 Assessment & Plan (07/05/2021 4:18 PM ORACLE DATABASE ARCHITECT): Combined with her depression Will refer to [facility] Further guidance depending on her evaluation there Reviewed self medicating, and how we need to get her mood under better control, she verbalized understanding Follow-up with me after her discharge Missed 06/21/2021 11/21/2024 Overview (06/21/2021): Added automatically from request for surgery [id number] Miscarriage, threatened, early 06/08/2021 11/21/2024 Menorrhagia with regular cycle 05/30/2013 09/09/2022 Assessment & Plan (01/10/2022 3:33 PM CDT): Ultrasound set up for tomorrow, and f/u visit with [facility] this week Update me after the visit Call for questions or concerns Encounters Date Type Department Care Team Description 06/26/2025 10:12 AM ORACLE DATABASE ARCHITECT - 06/26/2025 11:59 PM ORACLE DATABASE ARCHITECT Hospital Encounter [facility] [address] [place] [address] [facility] [address] [place] [address] Jeromy Ureña MD Cervical radicular pain (Primary Dx); Lumbar radiculopathy Discharge Disposition: Discharge to home or self care 06/23/2025 Telephone [facility] [address] [place] [address] [facility] [address] [place] [address] Jeromy Ureña MD [facility] Preprocedure 06/18/2025 1:03 PM ORACLE DATABASE ARCHITECT - 06/18/2025 11:59 PM ORACLE DATABASE ARCHITECT Hospital Encounter [facility] [address] [place] [address] [facility] [address] [place] [address] Jeromy Ureña MD Lumbar radiculopathy Discharge Disposition: Discharge to home or self care 06/17/2025 Telephone [facility] [address] [phone] Miranda Roy PA 06/16/2025 Telephone [facility] [address] [facility] [address] [place] [address] Jeromy Ureña MD [facility] Preprocedure 06/04/2025 10:35 AM ORACLE DATABASE ARCHITECT - 06/04/2025 11:59 PM ORACLE DATABASE ARCHITECT Hospital Encounter [facility] [address] [facility] [address] [facility] [address] [place] [address] Tierney Murguia NP Osteoarthritis of spine with radiculopathy, lumbar region (Primary Dx); Lumbar radiculopathy; Cervical radicular pain Discharge Disposition: Discharge to home or self care 05/22/2025 1:45 PM ORACLE DATABASE ARCHITECT Office Visit [address] [place] [phone] Domo Powell MD Obstructive sleep apnea (Primary Dx); Primary insomnia; Lung nodules 05/22/[address] [phone] Domo Powell MD Orders Only 05/21/2025 7:09 PM ORACLE DATABASE ARCHITECT - 05/21/2025 11:59 PM ORACLE DATABASE ARCHITECT Hospital Encounter [address] [address] Lumbar radiculopathy Discharge Disposition: Discharge to home or self care 05/21/2025 6:43 PM ORACLE DATABASE ARCHITECT - 05/21/2025 11:59 PM ORACLE DATABASE ARCHITECT Hospital Encounter [address] [address] Cervical radiculopathy Discharge Disposition: Discharge to home or self care 05/20/2025 10:30 AM ORACLE DATABASE ARCHITECT Office Visit [facility] Medicine [address] [phone] Emmie Ryan NP Nausea and vomiting, unspecified vomiting type (Primary Dx); Chest pain, unspecified type 04/18/2025 Results Follow-Up [facility] Medicine [address] [phone] Chest WO Contrast 04/16/2025 12:54 PM CDT - 04/16/2025 11:59 PM CDT Hospital Encounter [facility] [address] [place] [address] Pulmonary nodule; Abnormal chest CT Discharge Disposition: Discharge to home or self care 04/09/2025 11:56 AM CDT - 04/09/2025 11:59 PM CDT Hospital Encounter [facility] [address] [place] [address] [facility] [address] [place] [phone] Jeromy Ureña MD Sacroiliitis (Primary Dx); Other chronic back pain Discharge Disposition: Discharge to home or self care 04/04/2025 11:00 AM CDT Office Visit [facility] Medicine [address] [place] [phone] Kiel Alfonso MD Low back pain, unspecified back pain laterality, unspecified chronicity, unspecified whether sciatica present (Primary Dx); Hypertension, essential 04/04/2025 Telephone [facility] [address] [place] [address] [place] [phone] Jeromy Ureña MD PMC Preprocedure 04/01/2025 11:35 AM CDT - 04/01/2025 2:[address] [facility] Emergency Department [address] [place] [phone] Steffany Lee NP Chronic bilateral low back pain, unspecified whether sciatica present (Primary Dx) Discharge Disposition: Discharge to home or self care from Last 3 Months Immunizations Immunization Administration Dates Next Due DTaP 12/06/2015 Hep A, Adult 06/02/2015,04/08/2014 Hep A, Unspecified 06/02/2015,04/08/2014 Influenza, Unspecified 03/17/2025(Deferr ed: Patient decision),03/17/2025(Deferred: Patient decision),05/08/2024(Deferred: Patient Refused),04/16/2024(Deferred: Patient decision),06/13/2023(Deferred: Patient Refused),04/16/2022(Deferred: Patient Refused),07/05/2021(Deferred: Patient Refused),04/16/2021(Deferred: Patient Refused),04/16/2021(Deferred: Patient Refused),04/16/2020(Deferred: Patient Refused),04/16/2020(Deferred: Patient Refused) Surgical History Surgery Date Site/Laterality Comments DILATION AND CURETTAGE OF UTERUS SECTION 07/17/1998 - 07/16/1999 PARTIAL HYSTERECTOMY HYSTERECTOMY Medical History Medical History Date Comments Anxiety Depression Varicella Alcohol withdrawal syndrome, uncomplicated (HCC) 10/06/2022 Sepsis (HCC) 10/31/2022 Chronic alcoholism (HCC) 07/05/2021 Miscarriage, threatened, ear ly 06/08/2021 Missed 06/21/2021 Added keyannaa chandler from request for surgery [id number] Alcoholic hepatitis without ascites (HCC) 07/05/2021 Hypopotassemia 04/14/2023 Family History Medical History Relation Name Comments No Known Problems Father No Known Problems Maternal Grandfather No Known Problems Maternal Grandmother No Known Problems Mother No Known Problems Paternal Grandfather No Known Problems Paternal Grandmother Breast cancer Neg Hx Ovarian cancer Neg Hx Relation Name Status Comments Father Alive Maternal Grandfather Maternal Grandmother Mother Alive Paternal Grandfather Paternal Grandmother Social History Tobacco Use Types Packs/Day Years Used Date Smoking Tobacco: Never Passive Smoke Exposure: Past Smokeless Tobacco: Never Tobacco Cessation:Counseling Given: Not Answered Alcohol Use Standard Drinks/Week Comments Never 0 [...] points, staff should administer the PHQ-9) 0 04/04/2025 PRAPARE - Transportation Answer Date Re corded [...] often do you have a drink containing alc ohol? Never 06/26/2025 Average Number of Drinks Not on file 025 Frequency of Binge Drinking Not on file 06/16 Personal Safety Answer Date Recorded Have you ever been in or are you currently in a harmful physical or emotional relationship or is someone making you feel afraid or unsafe? Denies 04/01/2025 Comments No Sex and Gender Information Value Date Recorded Sex Assigned at Not on file Legal Sex Female 7:03 AM [employer]ACLE DATABASE ARCHITECT Gender Identity Not on file Sexual Orientation Not on file Obstetrics History Para Term AB IAB SAB Ectopic Multiple Livin g Live Births 3 1 1 1 1 1 Date Outcome GA Total Labor Labor/2nd/3rd Weight Sex Type Anes PTL Torrie A1 A5 Name Clin SAB Term Last Filed Vital Signs Vital Sign Reading Time Taken Comments Blood Pressure 143/97 06/26/2025 11:16 AM [employer]LE DAT[employer] ARCHITECT Pulse 64 06/26/2025 11:16 AM [employer]LE DAT[employer]ASE ARCHITECT Temperature 36.3 C (97.3 F) 06/26/2025 10:23 AM [employer]ACLE DATABASE ARCHITECT Respiratory Rate 16 06/26/2025 11:16 AM [employer]ACLE DATABASE ARCHITECT Oxygen Saturation 99% 06/26/2025 11:16 AM [employer]ACLE DATABASE ARCHITECT Inhaled Oxygen Concentration - - Weight 95.3 kg (210 lb) 06/26/2025 10:23 AM [employer]ACLE DATABASE ARCHITECT Height 170.2 cm (5' 7) 06/26/2025 10:23 AM [employer]ACLE DATABASE ARCHITECT Body Mass Index 32.89 06/26/2025 10:23 AM ORACLE DATABASE ARCHITECT Plan of Treatment Health Maintenance Due Date Last Done Comments HPV Vaccines (1 - 3-dose SCDM series) 2006 Breast Cancer Screening-Mammogram 11/26/2024 11/27/2023 Influenza Vaccine (#1) 2025 Regular Well Visit/Exam 18-64 05/08/2025 05/08/2024, 09/09/2022 DTaP/Tdap/Td Vaccine (2 - Tdap) 12/05/2025 12/06/2015 Depression Screening 04/04/2026 04/04/2025, 02/26/2025, 02/13/2025, Additional history exists Colon Cancer Screening-Colonoscopy 08/01/2029 08/01/2024 Hepatitis B Screening Completed 10/07/2020 Hepatitis C Screening Completed 10/07/2020 Cervical Cancer Screening Discontinued 09/09/2022 Pneumococcal vaccine <65 Aged Out No longer eligible based on patient's age to complete this topic Goals Goal Patient Goal Type Associated Problems Recent Progress Patient-Stated? Author CCM Chronic Pain Care Plan Chronic Care Management No change(06/26 10:36 AM ORACLE DATABASE ARCHITECT) No Ida Chandler, RN Note: Problem: Chronic Pain Goals: 1. Minimize further functional decline 2. Maximize quality of life 3. Control pain Strategies: - Activity/exercise program recommendation - Conservative stepwise pain medicine strategy with multi-disciplinary approach - Recommend healthy lifestyle strategies and compensatory methods as needed Procedures Procedure Name Priority Date/Time Associated Diagnosis Comments PAIN MGMT IMAGING CERVICAL/THORACIC EPIDURAL STEROID INJ Schedule Routine, Read Routine (OP Routine) 06/26/2025 11:16 AM [employer]ACLE DATABASE ARCHITECT Cervical radicular pain PAIN MGMT IMAGING LUMBAR/SACRAL SELECTIVE NERVE ROOT INJ (TFE) BILATERAL Schedule Routine, Read Routine (OP Routine) 06/18/2025 2:15 PM [employer]LE DAT[employer]ASE ARCHITECT Lumbar radiculopathy MRI LUMBAR SPINE WO CONTRAST Schedule Routine, Read Routine (OP Routine) 05/21/2025 7:44 PM [employer]ACLE DATABASE ARCHITECT Lumbar radiculopathy MRI CERVICAL SPINE WO CONTRAST Schedule Routine, Read Routine (OP Routine) 05/21/2025 7:27 PM [employer]ACLE DATABASE ARCHITECT Cervical radiculopathy CT CHEST WO CONTRAST Schedule Routine, Read Routine (OP Routine) 04/16/2025 1:05 PM CDT Pulmonary nodule Abnormal chest CT PAIN MGMT IMAGING SI JOINT RIGHT Schedule Routine, Read Routine (OP Routine) 04/09/2025 12:53 PM CDT Sacroiliitis COLONOSCOPY 08/01/2024 7:45 AM [employer]ACLE DATABASE ARCHITECT SCREENING MAMMOGRAM BILATERAL W EMRE Schedule Routine, Read Routine (OP Routine) 11/27/2023 12:32 PM CDT Screening mammogram for breast cancer PAP AND HIGH RISK HPV, REFLEX TO GENOTYPING Routine 09/09/2022 8:04 AM ORACLE DATABASE ARCHITECT Well woman exam with routine gynecological exam HEPATITIS PANEL, ACUTE Routine 10/07/2020 5:58 PM CDT from Last 3 Months or Most Recently Relevant to Health Maintenance Results * Imaging Cervical/Thoracic Epidural Steroid INJ ([id number]) (06/26/2025 11:16 AM ORACLE DATABASE ARCHITECT) Narrative [facility] - 06/26/2025 11:17 AM [employer]ACLE DATABASE ARCHITECT The images from this study are not interpreted by Radiology. Please refer to the physician's procedure / OR operative note. us Tierney Gomezte OPTICAL ASSISTANT IMG PAIN MGMT PROCEDURE S Final Result [facility] * Imaging Lumbar/Sacral Selective Nerve Root INJ (TFE) Bilateral ([id number]) (06/18/2025 2:15 PM ORACLE DATABASE ARCHITECT) Narrative [facility] - 06/18/2025 2:16 PM [employer]ACLE DATABASE ARCHITECT The images from this study are not interpreted by Radiology. Please refer to the physician's procedure / OR operative note. us Tierney Gomezte OPTICAL ASSISTANT IMG PAIN MGMT PROCEDURE S Final Result [facility] * MRI Lumbar Spine WO Contrast (05/21/2025 7:44 PM ORACLE DATABASE ARCHITECT) Anatomical Region Laterality Modality Spine N/A Magnetic Resonan ce 05/22/2025 7:43 AM ORACLE DATABASE ARCHITECT Impressions 05/22/2025 7:43 AM ORACLE DATABASE ARCHITECT Spondylosis and degenerative disease of the lumbar spine as detailed level by level above. Electronically signed by: Maicol Simon M.D. Narrative 05/22/2025 7:43 AM ORACLE DATABASE ARCHITECT EXAMINATION: MRI LUMBAR SPINE WO CONTRAST REASON FOR STUDY: Chronic low back pain radiating down unspecified radicular levels of the right leg to the right foot/toes. No provided history of trauma or inciting and/or aggravating events. No lumbar spine surgeries. History of hysterectomy. TECHNIQUE: Sagittal and axial imaging of the lumbar spine includes T1, T2, STIR and gradient echo sequences. Images saved to PACS. COMPARISON: Relevant portions of CT abdomen pelvis with contrast 05/29/2024; lumbar spine radiograph 04/05/2024. FINDINGS: SEGMENTATION: No lumbosacral transitional anatomy. The lowest fully formed intervertebral disc level is labeled L5-S1. ALIGNMENT: Alignment and curvature normal. VERTEBRAE: No MR evidence of acute-subacute fracture. Vertebral body heights unchanged. Spondylosis. Marrow signal within normal limits. DISCS: Multilevel variable vacuum disc phenomenon, intervertebral disc desiccation, and loss of vertebral disc height. HARDWARE: None in the lumbar spine. CORD: Normal in size and signal intensity with conus medullaris termination at the inferior aspect of L1. LOWER THORACIC: Incompletely imaged. No stenosis demonstrated. INDIVIDUAL DISC LEVELS: L1-L2: No diffuse disc bulge or focal herniation. No spinal canal stenosis. No neuroforaminal stenosis. L2-L3: No significant diffuse disc bulge or focal herniation. No spinal canal stenosis. No neuroforaminal stenosis. L3-L4: Mild annular disc bulge. Bilateral hypertrophic facet arthropathy. Slight compromise of the right greater than left lateral recess. No spinal canal stenosis. Mild neuroforaminal stenosis, noting combination of disc and arthropathic facet slight contact with the exiting bilateral L4 nerve roots. L4-L5: Mild annular disc bulge. Bilateral hypertrophic facet arthropathy. Mild ligament flavum thickening. Slight compromise of the left lateral recess. No significant spinal canal stenosis. Mild left moderate left and mild inferior right neuroforaminal stenosis, noting variable slight disc contact with the exiting bilateral L4 nerve roots. L5-S1: Mild annular disc bulge with left eccentric central-slightly left foraminal, maximal left subarticular, disc protrusion. Bilateral hypertrophic facet arthropathy, noting fluid in the facet joints suggestive of facet synovitis. Compromise of the right lateral recess, noting disc contact with the descending left S1 nerve root. No spinal canal stenosis. Moderate right and mild left neuroforaminal stenosis, noting disc contact with the exiting left L5 nerve root. ? SOFT TISSUES: No acute abnormality. OTHER: None. Procedure Note Maicol Simon MD - 05/22/2025 EXAMINATION: MRI LUMBAR SPINE WO CONTRAST REASON FOR STUDY: Chronic low back pain radiating down unspecified radicular levels of the right leg to the right foot/toes. No provided history of trauma or inciting and/or aggravating events. No lumbar spine surgeries. History of hysterectomy. TECHNIQUE: Sagittal and axial imaging of the lumbar spine includes T1, T2, STIR and gradient echo sequences. Images saved to PACS. COMPARISON: Relevant portions of CT abdomen pelvis with contrast 05/29/2024; lumbar spine radiograph 04/05/2024. FINDINGS: SEGMENTATION: No lumbosacral transitional anatomy. The lowest fully formed intervertebral disc level is labeled L5-S1. ALIGNMENT: Alignment and curvature normal. VERTEBRAE: No MR evidence of acute-subacute fracture. Vertebral body heights unchanged. Spondylosis. Marrow signal within normal limits. DISCS: Multilevel variable vacuum disc phenomenon, intervertebral disc desiccation, and loss of vertebral disc height. HARDWARE: None in the lumbar spine. CORD: Normal in size and signal intensity with conus medullaris termination at the inferior aspect of L1. LOWER THORACIC: Incompletely imaged. No stenosis demonstrated. INDIVIDUAL DISC LEVELS: L1-L2: No diffuse disc bulge or focal herniation. No spinal canal stenosis. No neuroforaminal stenosis. L2-L3: No significant diffuse disc bulge or focal herniation. No spinal canal stenosis. No neuroforaminal stenosis. L3-L4: Mild annular disc bulge. Bilateral hypertrophic facet arthropathy. Slight compromise of the right greater than left lateral recess. No spinal canal stenosis. Mild neuroforaminal stenosis, noting combination of disc and arthropathic facet slight contact with the exiting bilateral L4 nerve roots. L4-L5: Mild annular disc bulge. Bilateral hypertrophic facet arthropathy. Mild ligament flavum thickening. Slight compromise of the left lateral recess. No significant spinal canal stenosis. Mild left moderate left and mild inferior right neuroforaminal stenosis, noting variable slight disc contact with the exiting bilateral L4 nerve roots. L5-S1: Mild annular disc bulge with left eccentric central-slightly left foraminal, maximal left subarticular, disc protrusion. Bilateral hypertrophic facet arthropathy, noting fluid in the facet joints suggestive of facet synovitis. Compromise of the right lateral recess, noting disc contact with the descending left S1 nerve root. No spinal canal stenosis. Moderate right and mild left neuroforaminal stenosis, noting disc contact with the exiting left L5 nerve root. ? SOFT TISSUES: No acute abnormality. OTHER: None. IMPRESSION: Spondylosis and degenerative disease of the lumbar spine as detailed level by level above. Electronically signed by: Maicol Simon M.D. Jeromy Garay MD IMBharath MRI PROCEDURES Fi nal Result * MRI Cervical Spine WO Contrast (05/21/2025 7:27 PM ORACLE DATABASE ARCHITECT) Anatomical Region Laterality Modality Spine N/A Magnetic Resonan ce 05/22/2025 7:30 AM ORACLE DATABASE ARCHITECT Impressions 05/22/2025 7:30 AM ORACLE DATABASE ARCHITECT 1. Multilevel cervical disc degeneration with uncovertebral spurring and facet arthropathy as described. There is no high-grade spinal canal stenosis. 2. Neural foraminal narrowing is most noticeable from C4-C5 through C6-C7. Electronically signed by: Zeus Whelan D.O. Narrative 05/22/2025 7:30 AM ORACLE DATABASE ARCHITECT EXAM DESCRIPTION:MRI CERVICAL SPINE WO CONTRAST REASON FOR STUDY:C/o neck pain with popping with movement. C/o limited rom. Neck pain, chronic TECHNIQUE: Sagittal and Axial imaging includes T1, T2, STIR and gradient echo sequences. COMPARISON:Cervical spine radiographs dated 03/30/2024. FINDINGS: Multiple of the sequences are degraded by patient motion related artifact. ALIGNMENT: Straightening of the cervical lordosis. Mild retrolisthesis of C5 on C6. VERTEBRAE: No gross acute compression fracture in the cervical spine within the confines of the motion degraded study. If trauma is suspected then a CT has higher sensitivity for spinal fractures and can be obtained as clinically indicated. Endplate degenerative changes marginal spur formation favoring C4-C5 through C6-C7. DISCS: Multilevel disc desiccation and height loss. HARDWARE: None in the spine. CORD: Apparent scattered patchy T2 hyperintensities throughout the cervical cord is likely motion and pulsation artifact. INDIVIDUAL LEVELS: C2-C3: Minor disc bulge. No significant spinal canal or neural foraminal narrowing. C3-C4: No gross disc bulge or spinal canal stenosis. Uncovertebral spurring and facet arthropathy with mild right and no significant left neural foraminal narrowing. C4-C5: Posterior osteophyte complex and disc protrusion eccentric to the right abuts the ventral cord. Dorsal CSF cleft is maintained. Uncovertebral spurring and facet arthropathy with mild to moderate right and mild left neural foraminal narrowing. C5-C6: Posterior discussion right complex abuts the ventral cord. Dorsal CSF cleft is maintained. Uncovertebral spurring and facet arthropathy with moderate neural foraminal narrowing, left more than right. C6-C7: Posterior discussion right complex without significant spinal canal stenosis. Uncovertebral spurring and facet arthropathy with mild left and no significant right neural foraminal narrowing. C7-T1: No significant disc bulge, spinal canal or neural foraminal narrowing. UPPER THORACIC: Incompletely imaged. No high-grade spinal canal stenosis. Procedure Note Zeus Whelan, DO - 05/22/2025 EXAM DESCRIPTION:MRI CERVICAL SPINE WO CONTRAST REASON FOR STUDY:C/o neck pain with popping with movement. C/o limited rom. Neck pain, chronic TECHNIQUE: Sagittal and Axial imaging includes T1, T2, STIR and gradient echo sequences. COMPARISON:Cervical spine radiographs dated 03/30/2024. FINDINGS: Multiple of the sequences are degraded by patient motion related artifact. ALIGNMENT: Straightening of the cervical lordosis. Mild retrolisthesis of C5 on C6. VERTEBRAE: No gross acute compression fracture in the cervical spine within the confines of the motion degraded study. If trauma is suspected then a CT has higher sensitivity for spinal fractures and can be obtained as clinically indicated. Endplate degenerative changes marginal spur formation favoring C4-C5 through C6-C7. DISCS: Multilevel disc desiccation and height loss. HARDWARE: None in the spine. CORD: Apparent scattered patchy T2 hyperintensities throughout the cervical cord is likely motion and pulsation artifact. INDIVIDUAL LEVELS: C2-C3: Minor disc bulge. No significant spinal canal or neural foraminal narrowing. C3-C4: No gross disc bulge or spinal canal stenosis. Uncovertebral spurring and facet arthropathy with mild right and no significant left neural foraminal narrowing. C4-C5: Posterior osteophyte complex and disc protrusion eccentric to the right abuts the ventral cord. Dorsal CSF cleft is maintained. Uncovertebral spurring and facet arthropathy with mild to moderate right and mild left neural foraminal narrowing. C5-C6: Posterior discussion right complex abuts the ventral cord. Dorsal CSF cleft is maintained. Uncovertebral spurring and facet arthropathy with moderate neural foraminal narrowing, left more than right. C6-C7: Posterior discussion right complex without significant spinal canal stenosis. Uncovertebral spurring and facet arthropathy with mild left and no significant right neural foraminal narrowing. C7-T1: No significant disc bulge, spinal canal or neural foraminal narrowing. UPPER THORACIC: Incompletely imaged. No high-grade spinal canal stenosis. IMPRESSION: 1. Multilevel cervical disc degeneration with uncovertebral spurring and facet arthropathy as described. There is no high-grade spinal canal stenosis. 2. Neural foraminal narrowing is most noticeable from C4-C5 through C6-C7. Electronically signed by: Zeus Whelan D.O. Jeromy Garay MD IMG MRI PROCEDURES Fi nal Result * CT Chest WO Contrast (04/16/2025 1:05 PM CDT) Anatomical Region Laterality Modality Body N/A Computed Tomogra phy 04/18/2025 11:2 9 AM CDT Narrative 04/18/2025 11:32 AM CDT EXAM DESCRIPTION: CT CHEST WO CONTRAST REASON FOR STUDY: f/u on chest abnormalities f/u on chest abnormalities, Pulmonary nodule, Abnormal chest CT TECHNIQUE: CT scan of the chest performed without intravenous contrast using helical scanning technique. Reconstructed coronal and sagittal MPR images reviewed. All images stored on PACS. Automated exposure control was used as a dose optimization technique for this examination. COMPARISON: 11/27/2023 FINDINGS: The sensitivity for detection of solid visceral lesions is diminished without the use of intravenous contrast. LUNGS: Scattered areas of ground-glass opacity and some peripheral interlobular septal thickening are noted and may represent mild congestion/edema or an underlying infectious/inflammatory process. There are few persistent tree-in-bud opacities in the right middle lobe. A pleural-based nodule between the right upper and middle lobes (image 113) now measures 7 mm, previously 4.5 mm. PLEURA: No effusion. No pneumothorax. MEDIASTINUM/KRUPA: No identified masses or abnormal nodes. HEART: Heart size is normal with no pericardial effusion. CORONARY ARTERY CALCIFICATION: Not seen VASCULATURE: No thoracic aortic aneurysm. AXILLA: No adenopathy. CHEST WALL: No masses. No subcutaneous air. HARDWARE/LINES/TUBES: None. UPPER ABDOMEN: No significant abnormality. MUSCULOSKELETAL: No significant abnormality. OTHER: No other significant abnormality. IMPRESSION: 1. Scattered ground-glass opacities and peripheral interlobular septal thickening which may represent mild congestion/edema or an underlying infectious/inflammatory process. 2. Persistent right middle lobe tree-in-bud opacities. 3. Interval increased size of the pleural-based nodule between the right upper and middle lobes. A follow-up chest CT in 3-6 months is recommended. THIS IS AN ELECTRONICALLY VERIFIED FINAL REPORT 04/18/2025 11:32 AM - Electronically signed by Michael Caal M.D. BS: CHRISTIAN Report ID: [id number] Reading Location: [place] [id number] Procedure Note Michael Caal MD - 04/18/2025 EXAM DESCRIPTION: CT CHEST WO CONTRAST REASON FOR STUDY: f/u on chest abnormalities f/u on chest abnormalities, Pulmonary nodule, Abnormal chest CT TECHNIQUE: CT scan of the chest performed without intravenous contrastusing helical scanning technique. Reconstructed coronal and sagittal MPR images reviewed. All images stored on PACS. Automated exposure control was usedas a dose optimization technique for this examination. COMPARISON: 11/27/2023 FINDINGS: The sensitivity for detection of solid visceral lesions is diminished without the use of intravenous contrast. LUNGS: Scattered areas of ground-glass opacity and some peripheral interlobular septal thickening are noted and may represent mild congestion/edema or an underlying infectious/inflammatory process. Thereare few persistent tree-in-bud opacities in the right middle lobe. A pleural-based nodule between the right upper and middle lobes (image 113)now measures 7 mm, previously 4.5 mm. PLEURA: No effusion. No pneumothorax. MEDIASTINUM/KRUPA: No identified masses or abnormal nodes. HEART: Heart size is normal with no pericardial effusion. CORONARY ARTERY CALCIFICATION: Not seen VASCULATURE: No thoracic aortic aneurysm. AXILLA: No adenopathy. CHEST WALL: No masses. No subcutaneous air. HARDWARE/LINES/TUBES: None. UPPER ABDOMEN: No significant abnormality. MUSCULOSKELETAL: No significant abnormality. OTHER: No other significant abnormality. IMPRESSION: 1. Scattered ground-glass opacities and peripheralinterlobular septal thickening which may represent mild congestion/edema or anunderlying infectious/inflammatory process. 2. Persistent right middle lobe tree-in-bud opacities. 3. Interval increased size of the pleural-based nodule between the right upper and middle lobes. A follow-up chest CT in 3-6 months isrecommended. THIS IS AN ELECTRONICALLY VERIFIED FINAL REPORT 04/18/2025 11:32 AM - Electronically signed by Michael Caal M.D. BS: BS Report ID: [id number] Reading Location: [id number] us Miranda WATSON IMG CT PROCEDURES Final Result * Imaging SI Joint Injection Right ([id number]) (04/09/2025 12:53 PM CDT) Narrative [facility] - 04/09/2025 12:53 PM CDT The images from this study are not interpreted by Radiology. Please refer to the physician's procedure / OR operative note. us Jeromy Garay MD IMG PAIN MGMT PROCEDU RES Final Result [facility] * Colonoscopy (08/01/2024 7:45 AM ORACLE DATABASE ARCHITECT) Anatomical Region Laterality Modality Other Narrative Procedure Note Pedro Mckinley MD - 08/01/2024 7:45 AM CST [facility] GI ENDOSCOPY Patient Name: Annie Pedersen Procedure Date: 08/01/2024 7:45 AM Date of : 1980 Admit Type: Outpatient Age: 44 Gender: Female Attending MD: Pedro Mckinley M.D. Room: [facility] ENDOSCOPY ROOM 03 Note Status: Finalized Procedure: Colonoscopy Indications: Screening for colorectal malignant neoplasm Referring MD: Providers: Pedro Mckinley M.D. Medicines: Monitored Anesthesia Care Complications: No immediate complications. Estimated Blood Loss: Estimated blood loss: none. Procedure: Pre-Anesthesia Assessment: - Prior to the procedure, a History and Physicalwas performed, and patient medications and allergieswere reviewed. The risks and benefits of the procedureand the sedation options and risks were discussed withthe patient. All questions were answered and informed consent was obtained. Patient identification and proposed procedure were verified. After reviewingthe risks and benefits, the patient was deemed in satisfactory condition to undergo the procedure.The anesthesia plan was to use monitored anesthesiacare (MAC). Immediately prior to administration of medications, the patient was re-assessed foradequacy to receive sedatives. The heart rate, respiratory rate, oxygen saturations, blood pressure, adequacyof pulmonary ventilation, and response to care were monitored throughout the procedure. The physical status of the patient was re-assessed after the procedure. The benefits, risks and alternatives of theprocedure and sedation were discussed and informed consentwas obtained. All questions were answered. Please referto the signed informed consent document in the medical record. The scope was passed under direct vision.The [id number] colonoscope was introduced through theanus and advanced to the cecum, identified byappendiceal orifice and ileocecal valve. The colonoscopy was performed without difficulty. The patient tolerated the procedure well. The quality of the bowel preparation was adequate. Scope withdrawal time was12 minutes. Prep was administered in a split dose. Findings: The perianal and digital rectal examinations were normal. Four polyps were found in the sigmoid colon. The polyps werediminutive in size. These polyps were removed with a cold biopsy forceps.Resection and retrieval were complete. A few small-mouthed diverticula were found in the sigmoid colon. Non-bleeding internal hemorrhoids were found during retroflexion. The hemorrhoids were small. The exam was otherwise without abnormality. Impression: - Four diminutive polyps in the sigmoid colon,removed with a cold biopsy forceps. Resected andretrieved. - Diverticulosis in the sigmoid colon. - Non-bleeding internal hemorrhoids. - The examination was otherwise normal. Recommendation: - Patient has a contact number available for emergencies. The signs and symptoms of potential delayed complications were discussed with thepatient. Return to normal activities tomorrow. Written discharge instructions were provided to thepatient. - High fiber diet. - Continue present medications. - Await pathology results. - Repeat colonoscopy in 5-10 years for surveillance based on pathology results. Pedro Mckinley M.D. Pedro Mckinley M.D. 08/01/2024 8:14:48 AM . Number of Addenda: 0 Note Initiated On: 08/01/2024 7:45 AM Recognized by the [employer] for promoting quality in endoscopy us Pedro Mckinley MD ENDOSCOPY PROCEDURES Final Resul t * (ABNORMAL) Screening Mammogram Bilateral W Emre (11/27/2023 12:32 PM CDT) Anatomical Region Laterality Modality Breast Bilateral Mammography Impressions 11/27/2023 12:40 PM CDT BI-RADS ATLAS category (overall): 0 - Incomplete: Needs Additional Imaging Evaluation There are 2 small asymmetries in the outer right breast at posterior depth on CC view. Further evaluation with right unilateral diagnostic mammogram and possible sonogram is recommended. No suspicious findings are identified in the left breast on mammogram. The patient has been or will be contacted. Narrative 11/27/2023 12:40 PM CDT Screening Mammogram Bilateral W Emre: 11/27/23 The study was acquired using full field digital technology and interpreted from soft copy. 2D digital mammographic views, as well as 3D digital tomosynthesis were performed in the CC and MLO projections. CLINICAL: Screening mammogram for breast cancer. No relevant medical history has been documented for this patient. History of breast cancer in Neg Hx. COMPARISON: Baseline Screening Mammography. No prior mammography is available for comparison. BREAST TISSUE: The breasts are heterogeneously dense, which may obscure small masses. FINDINGS: There are 2 small asymmetries in the outer right breast at posterior depth on CC view. No definite correlate seen on MLO view. No suspicious findings are identified in the left breast on mammogram. Imtiaz Herrera MD IMG MAMMO PROCEDURES Final Result * Pap and High Risk HPV, reflex to Genotyping (09/09/2022 8:04 AM ORACLE DATABASE ARCHITECT) Thin prep (Pap test) 09/09/2022 8:04 AM ORACLE DATABASE ARCHITECT 09/12/2022 8:04 AM ORACLE DATABASE ARCHITECT Narrative PATHOLOGY [facility] - 09/14/2022 12:42 PM ORACLE DATABASE ARCHITECT [facility] Department of Pathology [address] [place] [address] Final Report with Addendum Note to Patients: This report may contain a detailed description of human tissue sent by a health care provider to the laboratory for pathologic evaluation. The content of this report is essential for diagnosis and may provide important critical findings. This information may be unfamiliar to patients to review without a medical professional present. It is advised that the patient review this report in the presence of a health care provider who can answer questions and explain the details. Patient Name: ANNIE PEDERSEN Address: [address] [place] [address] Gender: F : 1980 (Age: 42) Service: Location: [facility] #: [id number] Patient Type: [facility] SPECIMEN Taken: 09/09/2022 Received: 09/12/2022 Accessioned:: 09/13/2022 Reported: 09/14/2022 Physician(s): Lane Cunningham M.D. [facility] Diagnosis: Source of Specimen: SCREENING THIN PREP IMAGED PAP w/ HPV: Specimen Adequacy: - Satisfactory for evaluation; endocervical/transformation zone component present General Categorization: - Negative for intraepithelial lesion or malignancy Interpretation: - Changes consistent with Hyperkeratosis UGO Goldstein(ASCP) Report Electronically Reviewed and Signed Out By VALDEMAR GoldsteinASC) 09/14/2022 12:42:03Addenda: HPV Test Interpretation NEGATIVE for types 16, 18, 31, 33, 35, 39, 45, 51, 52, 56, 58, 59, 66 and 68. Test performed utilizing Gen-Probe Aptima assay. UGO Hampton(ASCP)Report Electronically Reviewed and Signed Out By VALDEMAR HamptonASC) 09/13/2022 14:33:05 Specimen(s) Received: A: SCREENING THIN PREP IMAGED PAP w/ HPV Clinical History: Last Menstrual Period: 08/31/2022 The Pap test is a screening test used to aid in the detection of cervical cancer and its precursors. It should not be the sole means by which malignant and premalignant lesions are diagnosed. Both false negative and false positive results may occur. It also has poor sensitivity for the detection of endometrial lesions and should not be used to evaluate suspected endometrial abnormalities. For these reasons it is most important to obtain Pap tests at regular intervals. The performance characteristics of some immunohistochemical stains, fluorescence in-situ hybridization tests and immunophenotyping by flow cytometry cited in this report (if any) were determined by the Surgical Pathology Department at [facility] as part of an ongoing software quality automation engineer program and in compliance with federally mandated regulations drawn from the Clinical Laboratory Improvement Act of 1988 (CLIA '88). Some of these tests rely on the use of analyte specific reagents and are subject to specific labeling requirements by the US Food and Drug Administration. Such diagnostic tests may only be performed in a facility that is certified by the Department of Health and Human Services as a high complexity laboratory under CLIA '88. The FDA has determined that such clearance or approval is not necessary. This test is used for clinical purposes. It should not be regarded as investigational or for research. Nevertheless, federal rules concerning the medical use of analyte specific reagents require that the following disclaimer be attached to the report: This test was developed and its performance characteristics determined by the Surgical Pathology Department [facility]. It has not been cleared or approved by the U. S. Food and Drug Administration. Lane Cunningham MD LAB CYTOLOGY ORDERABLES Final Result PATHOLOGY [facility] * Hepatitis panel, acute (10/07/2020 5:58 PM CDT) HepBsAg NONREACT NONREACTIVE [facility] [place] Comment: Siemens CentaurXP using GT (chemiluminescent immunoassay) technology. NONREACTIVE: IgM antibodies to Hepatitis B Surface antigen not detected. REACTIVE: IgM antibodies to Hepatitis B Surface antigen detected. Reactive results will be confirmed by neutralization testing. HBsAb qn <3.10 mIU/mL [facility] [place] Comment: Siemens CentaurXP using GT (chemiluminescent immunoassay) technology. 9.99 IU/L or less.....NONREACTIVE: IgM antibodies to Hepatitis B Surface antibody are not detected. 10.00 IU/L or greater..REACTIVE: IgM antibodies to Hepatitis B Surface antibody are detected. Hep B core IgM NONREACT NONREACTIVE [facility] Comment: Siemens CentaurXP using GT (chemiluminescent immunoassay) technology. NONREACTIVE: IgM antibodies to Hepatitis B Core antigen not detected. EQUIVOCAL: IgM antibodies to Hepatitis B Core antigen may or may not be present. Obtain a new specimen and retest. REACTIVE: IgM antibodies to Hepatitis B Core antigen detected. Hep A IgM NONREACT NONREACTIVE [facility] [place] Comment: Siemens CentaurXP using GT (chemiluminescent immunoassay) technology. NONREACTIVE: IgM antibodies to Hepatitis A not detected. This does not exclude possibility of exposure to Hepatitis A or early acute infection. EQUIVOCAL:IgM antibodies to Hepatitis A may or may not be present. Suggest recollection and retest. REACTIVE: Antibodies to Hepatitis A detected. Hep C Ab NONREACT NONREACTIVE [facility] [place] Comment: Siemens CentaurXP using TG (chemiluminescent immunoassay) technology. NONREACTIVE: Antibodies to Hepatitis C not detected. This does not exclude early acute Hepatitis C infection, possibility of exposure to Hepatitis C, antibodies below detection limit, or to lack of antibody reactivity to the antigen used in this assay. EQUIVOCAL: Antibodies to Hepatitis C may or may not be present. Sample to be confirmed by real-time PCR method. REACTIVE: Antibodies to Hepatitis C detected.Sample to be confirmed by real-time PCR method. 10/07/2020 5:58 PM CDT 10/07/2020 6:02 PM CDT Narrative Resulting Agency Comment IN Tsering Delvalle NP LAB MICROBIOLOGY - GENERAL DIRK BALDERAS Final Result [facility] [place] [address] [place] [address], [facility] [phone] from Last 3 Months or Most Recently Relevant to Health Maintenance Insurance [facility] Advance Directives For more information, please contact: [phone] * Full Code (Latest Code Status on File) Date Activated Date Inactivated Comments 04/14/2023 2:31 PM 04/16/2023 4:09 PM * Full Code Date Activated Date Inactivated Comments 12/19/2022 4:45 PM 12/20/2022 7:08 PM * Full Code Date Activated Date Inactivated Comments 10/31/2022 1:04 PM 11/05/2022 3:06 PM * Full Code Date Activated Date Inactivated Comments 10/06/2022 2:09 PM 10/09/2022 3:03 PM Care Teams Dandy Tender Relationship Specialty Start Date End Date Miranda Roy PA PCP - General Family Medicine 11/21/24 Lane Cunningham MD Consulting Physician Obstetrics and Gynecology 06/23/21
--- OUTSIDE RECORDS SUMMARY | 2025-07-01 18:30 | XMS_ITS | Clinical Summary ---
Author Organization [facility] Address [address] [place] [address] Phone Care Team Providers Care Lab Director Name Role Phone Unavailable Primary Care Provider Unavailabl e Allergies Active Allergy Reactions Criticality Noted Date Comments Sulfa (Sulfonamide Antibiotics) Unknown 05/18 Medications escitalopram oxalate (LEXAPRO) 10 mg tablet Take by mouth daily. Active QUEtiapine (SEROquel) 25 mg tablet Take by mouth 2 times daily. Active lisinopriL (PRINIVIL) 5 mg tablet Take by mouth daily. Active hydrOXYzine pamoate (VISTARIL) 25 mg capsule Take by mouth 3 times daily as needed for Itching. Active Active Problems No known active problems Social History Tobacco Use Types Packs/Day Years Used Date Smoking Tobacco: Never Smokeless Tobacco: Never Alcohol Use Standard Drinks/Week Comments Yes 0 (1 standard drink = 0.6 oz pure alcohol) Daily I don't keep up with it. Comments Unknown Sex and Gender Information Value Date Recorded Sex Assigned at Not on file Legal Sex Female 10:56 PM CDT Gender Identity Not on file Sexual Orientation Not on file Last Filed Vital Signs Vital Sign Reading Time Taken Comments Blood Pressure 159/111 06/23/2022 12:21 PM [facility] Pulse 107 06/23/2022 12:21 PM [facility] Temperature 36.9 C (98.4 F) 06/23/2022 12:21 PM [facility] Respiratory Rate 18 05/18/2022 5:26 PM CDT Oxygen Saturation 99% 05/18/2022 5:26 PM CDT Inhaled Oxygen Concentration - - Weight 88.5 kg (195 lb) 06/23/2022 12:21 PM [facility] Height 170.2 cm (5' 7) 06/23/2022 12:21 PM [facility] Body Mass Index 30.54 06/23/2022 12:21 PM [facility] Plan of Treatment Health Maintenance Due Date Last Done Comments HEPATITIS B VACCINES (1 of 3 - 19+ 3-dose series) 07/17 HPV/Cotest (21-29) 2000 CERVICAL CANCER SCREENING 2009 HPV/Cotest (30-65) 2009 PAP SMEAR 2009 BREAST CANCER SCREENING 2019 COLORECTAL SCREENING 2024 Colorectal Cancer Screening 2024 FIT-DNA Q 3 years 2024 FIT/FOBT Q 1 year 2024 Flex Sig/CT Colonography Q 5 years 2024 INFLUENZA VACCINE (#1) 2025 DTAP/TDAP/TD VACCINES (2 - Tdap) 12/05/2025 12/06/19 16 HPV VACCINES (No Doses Required) Completed Insurance [facility] MEDICA[facility]
--- OUTSIDE RECORDS SUMMARY | 2025-07-01 18:30 | XMS_ITS | Clinical Summary ---
Author Organization [facility] Address [address] [place] [address] Care Team Providers Care Mattress Maker Name Role Phone Zbigniew Santos MD Primary Care Provider Source Comments [facility],non-owned Affiliates and Associated Physician Practices is amultiple site organization consisting of ambulatory clinics and hospital sitesin [place], [place], [place] and [place]. This disclosure is being madepursuant to the Care Everywhere program and may not contain all information available regarding this patient. Last updated 18.[employer] [facility] Allergies No known active allergies Medications * This document contains information received from the source organization and may not represent a complete record from that organization. * Be aware that medications may not be up to date on this document. Alwaysverify current medications with the patient. hydrOXYzine HCl (Atarax) 25 MG tablet Take 1 (one) tablet by mouth every 6 hours as needed 15 tablet 01/18/2023 Active traZODone (Desyrel) 100 MG tablet Take 1 (one) tablet by mouth nightly as needed for Insomnia 15 tablet 01/18/2023 Active ondansetron, disintegrating, (Zofran ODT) 4 MG tablet Take 1 (one) tablet by mouth every 6 hours as needed for Nausea/Vomiti ng Allow tablet to dissolve on the tongue 15 tablet 01/18/2023 Active amLODIPine (Norvasc) 10 MG tablet Take 1 (one) tablet by mouth once daily 15 tablet 01/19/2023 Active methocarbamol (Robaxin) 750 MG tablet Take 1 (one) tablet by mouth every 6 hours as needed for Muscle Spasms 15 tablet 01/18/2023 Active thiamine (Vitamin B-1) 100 MG tablet Take 1 (one) tablet by mouth once daily 30 tablet 01/18/2023 Active Active Problems Problem Noted Date Diagnosed Date Alcohol dependence with withdrawal with complica tion 01/16/2023 Transaminitis 06/25/2019 Intractable vomiting 06/25/2019 Social History Tobacco Use Types Packs/Day Years Used Date Smoking Tobacco: Never Smokeless Tobacco: Never Alcohol Use Standard Drinks/Week Comments Yes 0 (1 standard drink = 0.6 oz pur e alcohol) AUDIT-C Answer Date Recorded Frequency of Alcohol Consumption 4 or more times a week 06/25/2019 Average Number of Drinks 3 or 4 019 Frequency of Binge Drinking Not on file 06/16 Overall Financial Resource Strain (CARDIA) Answe r Date Recorded How hard is it for you to pa y for the very basics like food, housing, medical care, and heating? Not very hard 01/16/2023 [facility] Occupat ional Health - Occupational Stress Questionnaire Answer Date Recorded Do you feel stress - tense, restless, nervous, or anxious, or unable to sleep at night because your mind is troubled all the time - these days? Very much 01/16/2023 Hunger Vital Sign Answer Date Recorded Within the past 12 months, y ou worried that your food would run out before you got the money to buy more. Never true 01/17/20 23 Within the past 12 months, t he food you bought just didn't last and you didn't have money to get more. Never true 01/16/2023 PRAPARE - Transportation Answer Date Re corded In the past 12 months, has l ack of transportation kept you from medical appointments or from getting medications? No 09/2022 In the past 12 months, has l ack of transportation kept you from meetings, work, or from getting things needed for daily living? No 01/16/2023 Housing Stability Vital Sign Answer Hernando e Recorded In the last 12 months, was t here a time when you were not able to pay the mortgage or rent on time? No 01/16/2023 In the last 12 months, how many places have you lived? 1 01/16/2023 In the last 12 months, was t here a time when you did not have a steady place to sleep or slept in a nursing home (including now)? No 01/16/2023 Comments Unknown Sex and Gender Information Value Date Recorded Sex Assigned at Not on file Legal Sex Female 1:55 PM CDT Gender Identity Not on file Sexual Orientation Not on file Last Filed Vital Signs Vital Sign Reading Time Taken Comments Blood Pressure 128/86 01/18/2023 8:11 AM CDT Pulse 75 01/18/2023 8:11 AM CDT Temperature 36.8 C (98.3 F) 01/18/2023 8:11 AM CDT Respiratory Rate 18 01/18/2023 8:11 AM CDT Oxygen Saturation 98% 01/18/2023 8:11 AM CDT Inhaled Oxygen Concentration - - Weight 92.5 kg (204 lb) 01/16/2023 10:42 AM CDT Height 170.2 cm (5' 7.01) 01/16/2023 10:42 AM C DT Body Mass Index 31.94 01/16/2023 10:42 AM CDT Plan of Treatment Health Maintenance Due Date Last Done Comments COLOGUARD (AGES 45-75) - COL ON CA SCREENING 1980 COLON MONITORING 1980 COLONOSCOPY - COLON CA SCREENING 1979 CT COLONOGRAPHY - COLON CA SCREENING 1980 Colorectal Cancer Screening 1979 FIT - COLON CA SCREENING 1979 FLEX SIG - COLON CA SCREENING 1979 LIPID TESTING 1980 MAMMOGRAM 1979 DTAP/TDAP/TD VACCINES (1 - Tdap) 1998 HEPATITIS B VACCINE (1 of 3 - 19+ 3-dose series) 1998 PAP SMEAR 2000 HPV VACCINE (1 - 3-dose SCDM series) 2006 DEPRESSION SCREENING 07/17/2024 COVID-19 VACCINE ( - 2024-2 6 season) 2025 INFLUENZA VACCINE (#1) 2025 ZOSTER VACCINE (1 of 2) 2029 HEPATITIS C SCREENING Completed 01/16/2023 HIV SCREENING Completed 01/16/2023 HIB VACCINE Aged Out No longer eligi ble based on patient's age to complete this topic MENINGOCOCCAL (Group B) VACC INE SHARED DECISION-MAKING Aged Out No longer eligibl e based on patient's age to complete this topic MENINGOCOCCAL GROUPS A/C/Y/W VACCINE Aged Out No longer eligible b ased on patient's age to complete this topic PNEUMOCOCCAL VACCINE Aged Out No long er eligible based on patient's age to complete this topic Procedures Procedure Name Priority Date/Time Associated Diagnosis Comments HEPATITIS SCREEN ACUTE Routine 01/16/2023 11:47 AM CDT HIV-1 HIV-2 ANTIBODY + HIV P24 AG PANEL Routine 01/16/2023 11:47 AM CDT from Last 3 Months or Most Recently Relevant to Health Maintenance Results * HIV-1 HIV-2 ANTIBODY + HIV P24 AG PANEL (01/16/2023 11:47 AM CDT) Pathologist [facility] HIV1/2 Ab + P24 Ag Non Reactive Non Reactive 01/16/2023 12:39 PM CDT [facility] Blood BLOOD SPECIMEN / Unknown Venipuncture / Unknown 01/16/2023 11:47 AM CDT 01/16/2023 12:00 PM CDT Narrative [facility] - 01/16/2023 12:39 PM CDT No Laboratory evidence of HIV infection. Vic Freeman MD LAB - CHEMISTRY ORDERABLES Final Result [facility] [address] [place] [address] * HEPATITIS SCREEN ACUTE (01/16/2023 11:47 AM CDT) Pathologist [facility] HAV Antibody IgM Non Reactive Non Reactive 01/16/2023 12:41 PM CDT [facility] HBsAg Non Reactive Non Reactive 01/16/2023 12:41 PM CDT [facility] HBc Antibody IgM Non Reactive Non Reactive 01/16/2023 12:41 PM CDT [facility] HCV Antibody Screen Non Reactive Non Reactive 01/16/2023 12:41 PM CDT [facility] Blood BLOOD SPECIMEN / Unknown Venipuncture / Unknown 01/16/2023 11:47 AM CDT 01/16/2023 12:00 PM CDT Narrative [facility] - 01/16/2023 12:41 PM CDT Non Reactive - Antibodies to Hepatitis C virus (HCV) were not detected, result does not exclude early acute HCV infection. Vic Freeman MD LAB - CHEMISTRY ORDERABLES Final Result [facility] [address] [place] [address] from Last 3 Months or Most Recently Relevant to Health Maintenance Insurance [facility] Advance Directives * Full Code (Latest Code Status on File) Date Activated Date Inactivated Comments 01/16/2023 11:14 AM 01/18/2023 12:04 PM * Full Code Date Activated Date Inactivated Comments 06/25/2019 5:34 PM 06/26/2019 3:15 PM Care Teams Mattress Maker Relationship Specialty Start Date End Date Zbigniew Santos MD [address] [facility] [place] [address] [phone] PCP - General 03/01/18
--- OUTSIDE RECORDS SUMMARY | 2025-07-01 18:30 | XMS_ITS | Clinical Summary ---
Author Organization [facility] Address [address] [place] [address] Phone Care Team Providers Care Range Scientist Name Role Phone Provider, None Primary Care Provider Unavailabl e Allergies Active Allergy Reactions Criticality Noted Date Comments Sulfa Antibiotics Unknown 05/12/2023 Active Problems Problem Noted Date Diagnosed Date Alcohol withdrawal 05/12/2023 Family History Medical History Relation Name Comments No Known Problems Father No Known Problems Mother Relation Name Status Comments Father Mother Social History Tobacco Use Types Packs/Day Years Used Date Smoking Tobacco: Never Smokeless Tobacco: Never Tobacco Cessation:Counseling Given: Not Answered Alcohol Use Standard Drinks/Week Comments Yes 0 (1 standard drink = 0.6 oz pur e alcohol) up to 1/5 of tequila daily Comments Unknown Sex and Gender Information Value Date Recorded Sex Assigned at Not on file Legal Sex Female 11:22 AM CDT Gender Identity Not on file Sexual Orientation Not on file Last Filed Vital Signs Vital Sign Reading Time Taken Comments Blood Pressure 131/82 05/16/2023 12:04 PM CDT Pulse 113 05/16/2023 12:04 PM CDT Temperature 37.5 C (99.5 F) 05/16/2023 12:04 PM CDT Respiratory Rate 16 05/16/2023 12:04 PM CDT Oxygen Saturation 96% 05/16/2023 12:04 PM CDT Inhaled Oxygen Concentration - - Weight 90.7 kg (200 lb) 05/12/2023 4:20 PM CDT Height 170.2 cm (5' 7) 05/12/2023 4:20 PM CDT Body Mass Index 31.32 05/12/2023 4:20 PM CDT Plan of Treatment Not on file Insurance MEDICAID [facility] Advance Directives * Full Code (Latest Code Status on File) Date Activated Date Inactivated Comments 05/12/2023 3:57 PM 05/16/2023 3:42 PM CPR-Full T reatment: FULL ARREST: Attempt Resuscitation/CPR wit intubation and mechanical ventilation. PRE-ARREST: Use entire range of life support measures to stabilize the patient. Care Teams Range Scientist Relationship Specialty Start Date End Date Provider, None [place] PCP - General 05/12/23
--- OUTSIDE RECORDS SUMMARY | 2025-07-01 18:31 | XMS_ITS | Encounter Summary ---
Author Organization [facility] Address [address] [place] [id number] Care Team Providers Care Residential Mortgage Manager Name Role Phone Zbigniew Santos MD Primary Care Provider None, Provider Primary Care Provider Unavaila ble Encounter Details Date Type Department Care Team (Latest Contact Info) Description 03/27/2018 [facility] , Alanna Arango MD Social History Tobacco Use Types Packs/Day Years Used Date Smoking Tobacco: Never Smokeless Tobacco: Never Alcohol Use Standard Drinks/Week Comments No 0 (1 standard drink = 0.6 oz pur e alcohol) Comments Unknown Sex and Gender Information Value Date Recorded Sex Assigned at Not on file Legal Sex Female 7:25 PM CDT Gender Identity Not on file Sexual Orientation Not on file documented as of this encounter Plan of Treatment Not on file documented as of this encounter Visit Diagnoses Not on filedocumented in this encounter Additional Health Concerns Infection Onset Date Last Indicated Resolved Time COVID-19 Rule Out 07/04/2020 07/04/2020 07/04/2020 10:21 AM MANAGER CHILD documented as of this encounter Care Teams Residential Mortgage Manager Relationship Specialty Start Date End Date Zbigniew Santos MD [address] [place] [address] PCP - General 12/22/16 03/15/21 None, ProviderMD PCP - General 03/16/21 documented as of this encounter
--- OUTSIDE RECORDS SUMMARY | 2025-07-01 18:32 | XMS_ITS | Encounter Summary ---
Author Organization [facility] Address [facility] [place] [address] Care Team Providers Care Recoil Spring Winder Name Role Phone None, Provider MD Primary Care Provider Unavaila ble Reason for Visit * Reason Onset Date Comments Appointment Request 10/13/2022 Encounter Details Date Type Department Care Team (Late st Contact Info) Description 10/13/2022 Telephone [facility] DEFAULT None, Provider, MD Appointment Request Social History Tobacco Use Types Packs/Day Years Used Date Smoking Tobacco: Never Smokeless Tobacco: Never Alcohol Use Standard Drinks/Week Comments Yes 0 (1 standard drink = 0.6 oz pur e alcohol) at least a fifth a day. Comments No Sex and Gender Information Value Date Recorded Sex Assigned at Not on file Legal Sex Female 7:25 PM CDT Gender Identity Not on file Sexual Orientation Not on file documented as of this encounter Functional Status * RETIRED Are you deaf or do you have serious difficulty hearing Answer Date of Assessment Author Status No 07/04/2020 2:23 PM INSTRUCTOR TAP DANCING Activ e * RETIRED Are you blind or do you have serious difficulty seeing, even when wearing glasses? Answer Date of Assessment Author Status No 07/04/2020 2:23 PM INSTRUCTOR TAP DANCING Activ e * Do you have serious difficulty walking or climbing stairs? Answer Date of Assessment Author Status No 07/04/2020 2:23 PM Wilma Santiago RN Active * Do you have difficulty dressing or bathing? Answer Date of Assessment Author Status No 07/04/2020 2:23 PM Wilma Santiago RN Active * Because of a physical, mental, or emotional condition, do you have difficulty doing errands alone such as visiting a doctor's office or shopping? Answer Date of Assessment Author Status No 07/04/2020 2:23 PM Wilma Santiago RN Active documented as of this encounter Mental Status * Because of a physical, mental, or emotional condition, do you have serious difficulty concentrating, remembering, or making decisions? Answer Entry Date Author Status No 07/04/2020 2:23 PM Wilma Santiago RN Active documented in this encounter Progress Notes * Brittany Lucas - 10/13/2022 10:05 AM CDT Former pt still has meridian and would like to know if she switches to [place] if we would see her again? documented in this encounter Plan of Treatment Not on file documented as of this encounter Visit Diagnoses Not on filedocumented in this encounter Care Teams Recoil Spring Winder Relationship Specialty Start Date End Date None, Provider, PCP - General 03/16/21 documented as of this encounter
--- OUTSIDE RECORDS SUMMARY | 2025-07-01 18:32 | XMS_ITS | Clinical Summary ---
Author Organization [facility] Address Formerly [facility] [place] [address] Care Team Providers Care Mobile Lounge Driver Name Role Phone None, Provider MD Primary Care Provider Unavaila ble Allergies Active Allergy Reactions Criticality Noted Date Comments Sulfa Antibiotics Rash,Unknown Low 06/09/2017 Venlafaxine Rash Low 01/15/2025 Medications amLODIPine (NORVASC) 5 MG tablet Take 1 tablet (5 mg total) by mouth daily. 12/26/2022 Active polyethylene glycol (GLYCOLAX) packet Take 240 mLs (17 g total) by mouth daily. 12/20/2022 Active QUEtiapine (SEROQUEL) 100 MG tablet Take 1 tablet (100 mg total) by mouth nightly at bedtime. 10/15/2022 Active traZODone (DESYREL) 100 MG tablet Take 1 tablet (100 mg total) by mouth nightly as needed. at bedtime. 10/15/2022 Active Active Problems Problem Noted Date Diagnosed Date UTI (urinary tract infection) 12/27/2022 Abdominal pain 07/04/2020 Hematemesis with nausea 07/04/2020 BRBPR (bright red blood per rectum) 07/04/2020 DTs (delirium tremens) 08/30/2018 Acute hyperactive alcohol withdrawal delirium Suicide attempt by drug ingestion 08/29/2018 Depression, major, recurrent, moderate 9 Alcohol use disorder, severe, dependence 019 Alcohol withdrawal syndrome 08/29/2018 Overdose of antidepressant 08/29/2018 Insomnia 12/13/2017 Hives of unknown origin 09/20/2017 Hypertension 09/20/2017 Overview (07/24/2018): Transitioned From: Elevated blood pressure reading without diagnosis of hypertension Migraine headache 09/20/2017 Polyarthritis of hand 03/10/2016 Anxiety 10/23/2013 Dysmenorrhea 05/30/2013 Obesity, unspecified obesity severity, unspecified obesity type 05/30/2013 Attention and concentration deficit 08/07/2012 Resolved Problems Problem Noted Date Diagnosed Date Resolved Date Depression 05/28/2012 08/30/2018 Encounter for preventive health examination 05/11/2012 08/30/2018 Encounters Date Type Department Care Team Description 05/20/2025 11:29 AM RN DOCUMENT IMPROVEMENT - 05/20/2025 2:46 PM RN DOCUMENT IMPROVEMENT Emergency [facility] [place] [address] Kayley English MD Chest Pain Discharge Disposition: Home or Self Care (Routine Discharge) 05/20/2025 Travel from Last 3 Months Immunizations Immunization Administration Dates Next Due Hepatitis A (Generic) 06/02/2015,04/08/2014 Family History Medical History Relation Comments None Neg Hx Patient unaware of any family history of any medical problems. Social History Tobacco Use Types Packs/Day Years Used Date Smoking Tobacco: Never Smokeless Tobacco: Never Tobacco Cessation:Counseling Given: Not Answered Alcohol Use Standard Drinks/Week Comments Not Currently 0 (1 standard drink = 0.6 oz pur e alcohol) at least a fifth a day. Humiliation, Afraid, Rape, and Kick questionnair e Answer Date Recorded Within the last year, have y ou been afraid of your partner or ex-partner? No 12/27/2022 Within the last year, have y ou been humiliated or emotionally abused in other ways by your partner or ex-partner? No Within the last year, have y ou been kicked, hit, slapped, or otherwise physically hurt by your partner or ex-partner? No 12/27/2022 Within the last year, have y ou been raped or forced to have any kind of sexual activity by your partner or ex-partner? No 12/27/2022 Social Connection and Isolation Panel Answer Date Recorded In a typical week, how many times do you talk on the phone with family, friends, or neighbors? Never 12/27/2022 How often do you get together with friends or re latives? Never 12/27/2022 How often do you attend bahai or anabaptist serv ices? Never 12/27/2022 Do you belong to any clubs o r organizations such as bahai groups, unions, fraternal or athletic groups, or school groups? No 12/27/2022 How often do you attend meet ings of the clubs or organizations you belong to? Never 12/27/2022 Are you , , di vorced, , never , or living with a partner? Never 12/27/2022 AUDIT-C Answer Date Recorded Q1: How often do you have a drink containing alc ohol? Monthly or less 12/27/2022 Q2: How many drinks containi ng alcohol do you have on a typical day when you are drinking? 1 or 2 12/27/2022 Q3: How often do you have si x or more drinks on one occasion? Less than monthly 12/27/2022 Overall Financial Resource Strain (CARDIA) Answe r Date Recorded How hard is it for you to pa y for the very basics like food, housing, medical care, and heating? Somewhat hard 12/27/2022 [facility] Occupat ional Health - Occupational Stress Questionnaire Answer Date Recorded Do you feel stress - tense, restless, nervous, or anxious, or unable to sleep at night because your mind is troubled all the time - these days? Very much 12/27/2022 Exercise Vital Sign Answer Date Recorde d On average, how many days pe r week do you engage in moderate to strenuous exercise (like a brisk walk)? 0 days 12/27/2022 On average, how many minutes do you engage in exercise at this level? 0 min 12/27/2022 Hunger Vital Sign Answer Date Recorded Within the past 12 months, y ou worried that your food would run out before you got the money to buy more. Never true 12/28/19 23 Within the past 12 months, t he food you bought just didn't last and you didn't have money to get more. Never true 12/27/2022 PRAPARE - Transportation Answer Date Re corded In the past 12 months, has l ack of transportation kept you from medical appointments or from getting medications? No 12/15 In the past 12 months, has l ack of transportation kept you from meetings, work, or from getting things needed for daily living? No 12/27/2022 Housing Stability Vital Sign Answer Hernando e Recorded In the last 12 months, was t here a time when you were not able to pay the mortgage or rent on time? Yes 12/27/2022 In the last 12 months, how many places have you lived? 1 12/27/2022 In the last 12 months, was t here a time when you did not have a steady place to sleep or slept in a snf (including now)? No 12/27/2022 Comments No Sex and Gender Information Value Date Recorded Sex Assigned at Not on file Legal Sex Female 7:25 PM CDT Gender Identity Not on file Sexual Orientation Not on file Last Filed Vital Signs Vital Sign Reading Time Taken Comments Blood Pressure 137/82 05/20/2025 2:02 PM RN DOCUMENT IMPROVEMENT Pulse 57 05/20/2025 2:02 PM RN DOCUMENT IMPROVEMENT Temperature 36.4 C (97.5 F) 05/20/2025 11:40 AM RN DOCUMENT IMPROVEMENT Respiratory Rate 18 05/20/2025 2:02 PM RN DOCUMENT IMPROVEMENT Oxygen Saturation 100% 05/20/2025 2:02 PM RN DOCUMENT IMPROVEMENT Inhaled Oxygen Concentration - - Weight 102.6 kg (226 lb 3.1 oz) 025 11:40 AM RN DOCUMENT IMPROVEMENT Height 170.2 cm (5' 7) 05/20/2025 11:4 0 AM RN DOCUMENT IMPROVEMENT Body Mass Index 35.43 05/20/2025 11:40 AM RN DOCUMENT IMPROVEMENT Plan of Treatment Health Maintenance Due Date Last Done Comments Annual Physical 1982 Hepatitis B Vaccines (1 of 3 - 19+ 3-dose series) 1998 Pneumococcal Vaccine: Pediatrics (0 to 5 Years) and At-Risk Patients (6 to 49 Years) (1 of 2 - PCV) 1998 HPV Vaccines (1 - 3-dose SCD M series) 2006 Cervical Cancer Screening Pa p with HPV Testing (Age 30 to 64) Every 5 Years 2009 COVID-19 Vaccine ( - 2024-2 6 season) 2025 Influenza Adult (#1) 2025 Cervical Cancer Screening Pa p Smear (Age 30 to 64) Every 3 Years 09/09/2025 09/09/2022, 09/09/2022 Cervical Cancer Screening wi th HPV 09/09/2025 DTaP, Tdap and Td Vaccines ( 2 - Tdap) 12/05/2025 12/06/2015 Mammogram Screening 06/19/2026 06/19/2024, 12/18/2023, 11/27/2023 Colorectal Cancer Screening Colonoscopy (10 Years) 07/06/2030 07/06/2020 Hepatitis A Vaccines Aged Out 06/02/2015, 04/08/2014 No longer eligible based on patient's age to complete this topic Hepatitis C Completed 01/16/2023 Meningococcal B Vaccine Aged Out No l onger eligible based on patient's age to complete this topic Meningococcal Vaccine Aged Out No nati julito eligible based on patient's age to complete this topic RSV Immunizations Under 20 Months Aged Out No longer eligible b ased on patient's age to complete this topic Goals Goal Patient Goal Type Associated Problems Recent Progress Patient-Stated? Author Patient will return to prior living situation and remain independent in ADLs upon discharge from hospital Lifestyle No Priscilla Jessica LSW Procedures Procedure Name Priority Date/Time Associated Diagnosis Comments ECG 12-LEAD Routine 05/20/2025 1:56 PM RN DOCUMENT IMPROVEMENT TROPONIN, QUANT STAT 05/20/2025 1:50 PM RN DOCUMENT IMPROVEMENT XR CHEST PORTABLE STAT 05/20/2025 1:1 9 PM RN DOCUMENT IMPROVEMENT MAGNESIUM STAT 05/20/2025 11:37 AM RN DOCUMENT IMPROVEMENT TROPONIN, QUANT STAT 05/20/2025 11:37 AM RN DOCUMENT IMPROVEMENT COMPREHENSIVE METABOLIC PANEL STAT 05/20/2025 11:37 AM RN DOCUMENT IMPROVEMENT CBC W/DIFF AUTOMATED STAT 05/20/2025 11:37 AM RN DOCUMENT IMPROVEMENT ECG 12-LEAD Routine 05/20/2025 11:27 AM RN DOCUMENT IMPROVEMENT from Last 3 Months Results * ECG 12 lead (05/20/2025 1:56 PM RN DOCUMENT IMPROVEMENT) Only the most recent of2 resultswithin the time period is included. ECG QT 413 [facility] ECG QTC 414 [facility] 05/20/2025 1:56 PM RN DOCUMENT IMPROVEMENT Narrative [facility] - 05/22/2025 10:04 AM RN DOCUMENT IMPROVEMENT [facility] [address] Test Date: 2025-05-20 Pat Name: ANNIE PEDERSEN Department: 41 Room: [place] [address] Gender: Female [employer] Machine: [id number] : 1980 Requested By: KAYLEY ENGLISH Order Number: [id number] Reading MD: Rebekah Acosta Measurements Intervals [place] Rate: 60 P: 33 FL: 204 QRS: 43 QRSD: 93 T: -17 QT: 413 QTc: 414 Interpretive Statements SINUS RHYTHM NONSPECIFIC T-WAVE ABNORMALITY Compared to ECG 05/20/2025 11:27:49 Atrial fibrillation no longer present Possible ischemia no longer present T-wave abnormality still present No ischemic changes Preliminary EKG Interpretation by Kayley English M.D DOCUMENT IMPROVEMENT Procedure Note Rebekah Acosta MD - 05/22/2025 [facility] [place] Test Date: 2025-05-20 Pat Name: ANNIE PEDERSEN Department: 41 Room: [place] [address] Gender: Female [employer] Machine: [id number] : 1980 Requested By: KAYLEY ENGLISH Order Number: [id number] Reading MD: Rebekah Acosta Measurements Intervals [place] Rate: 60 P: 33 FL: 204 QRS: 43 QRSD: 93 T: -17 QT: 413 QTc: 414 Interpretive Statements SINUS RHYTHM NONSPECIFIC T-WAVE ABNORMALITY Compared to ECG 05/20/2025 11:27:49 Atrial fibrillation no longer present Possible ischemia no longer present T-wave abnormality still present No ischemic changes Preliminary EKG Interpretation by Kayley English M.D DOCUMENT IMPROVEMENT Kayley English MD ECG ORDERABLES Final Result Performing Organization Address City/[facility]/ZIP Co de Phone Number [facility] * TROPONIN, QUANT (05/20/2025 1:50 PM RN DOCUMENT IMPROVEMENT) Only the most recent of2 resultswithin the time period is included. TROPONIN I HIGH SENSITIVITY <3 <54 ng/L 05/20/2025 2:28 PM RN DOCUMENT IMPROVEMENT [facility] Comment: HIGH DOSES OF BIOTIN, TROPONIN-SPECIFIC AUTOANTIBODIES, AND ANTIBODY THERAPY CONTAINING HAMA MAY INTERFERE WITH THIS TEST RESULT. CORRELATION TO CLINICAL HISTORY AND PRESENTATION RECOMMENDED. 05/20/2025 1:50 PM RN DOCUMENT IMPROVEMENT Kayley English MD LABORATORY Final Result Performing Organization Address [facility] Co de Phone Number [facility] [address] [place] [address], [place] [phone] * XR CHEST PORTABLE (05/20/2025 1:19 PM RN DOCUMENT IMPROVEMENT) Anatomical Region Laterality Modality Chest Radiographic Tracie ging 05/20/2025 1:21 PM RN DOCUMENT IMPROVEMENT Impressions 05/20/2025 1:22 PM RN DOCUMENT IMPROVEMENT IMPRESSION: Cardiomegaly and mild central pulmonary vascular congestion. Ordered By: KAYLEY ENGLISH Interpreted By: Collin Shine MD, 05/20/2025 1:21 PM Narrative 05/20/2025 1:22 PM RN DOCUMENT IMPROVEMENT [facility] [address], [place] [address] XR CHEST PORTABLE INDICATION: chest pain TECHNIQUE: Portable AP view of the chest. COMPARISON: Prior chest radiograph 01/15/2025 FINDINGS: Cardiomegaly and mild central pulmonary vascular congestion, stable. No focal pulmonary consolidation. No sizable pleural effusions or pneumothorax. Procedure Note Collin Shine MD - 05/20/2025 [facility] [address], [place] [address] XR CHEST PORTABLE INDICATION: chest pain TECHNIQUE: Portable AP view of the chest. COMPARISON: Prior chest radiograph 01/15/2025 FINDINGS: Cardiomegaly and mild central pulmonary vascular congestion, stable. Nofocal pulmonary consolidation. No sizable pleural effusions orpneumothorax. IMPRESSION: Cardiomegaly and mild central pulmonary vascular congestion. Ordered By: KAYLEY ENGLISH Interpreted By: Collin Shine MD, 05/20/2025 1:21 PM us Kayley English MD GENERAL IMAGING Final Result * (ABNORMAL) COMPREHENSIVE METABOLIC PANEL (05/20/2025 11:37 AM RN DOCUMENT IMPROVEMENT) GLUCOSE 95 70 - 99 MG/DL 05/20/2025 12:30 PM RN DOCUMENT IMPROVEMENT [facility] BUN 13 7 - 18 MG/DL 05/20/2025 12:30 PM RN DOCUMENT IMPROVEMENT [facility] CREATININE S/P/B 0.96 0.55 - 1.02 MG/DL 05/20/2025 12:30 PM RN DOCUMENT IMPROVEMENT [facility] SODIUM S/P/B 137 136 - 145 MMOL/L 05/20/2025 12:30 PM [facility] POTASSIUM S/P/B 4.2 3.5 - 5.1 MMOL/L 05/20/2025 12:30 PM RN DOCUMENT IMPROVEMENT [facility] Comment:SLIGHT HEMOLYSIS, RE SULT MAY BE AFFECTED. CHLORIDE S/P/B 106 97 - 115 MMOL/L 05/20/2025 12:30 PM [facility] CO2 27.7 21 - 32 MMOL/L 05/20/2025 12:30 PM [facility] CALCIUM S/P/B 9.6 8.5 - 10.1 MG/DL 05/20/2025 12:30 PM [facility] BILIRUBIN TOTAL S/P/B 0.5 0.2 - 1.2 MG/DL 05/20/2025 12:30 PM [facility] Comment: THIS ASSAY IS NOT RECOMMENDED FOR PATIENTS UNDERGOING TREATMENT WITH ELTROMBOPAG DUE TO THE POTENTIAL FOR FALSELY ELEVATED RESULTS. TOTAL PROTEIN S/P/B 8.6(H) 6.4 - 8.2 G/DL 05/20/2025 12:30 PM [facility] ALBUMIN S/P/B 4.1 3.4 - 5.0 G/DL 05/20/2025 12:30 PM [facility] AST 24 15 - 37 U/L 05/20/2025 12:30 PM [facility] Comment:SLIGHT HEMOLYSIS, RE SULT MAY BE AFFECTED. ALT 28 14 - 55 U/L 05/20/2025 12:30 PM [facility] ALKALINE PHOSPHATASE S/P/B 102 50 - 136 U/L 05/20/2025 12:30 PM [facility] ANION GAP 3.3 2 - 10 MMOL/L 05/20/2025 12:30 PM [facility] BUN CREATININE RATIO 13.5 6 - 26 05/20/2025 12:30 PM [facility] A/G RATIO 0.9(L) 1.0 - 2.0 RATIO 05/20/2025 12:30 PM [facility] GFR ESTIMATE 74(L) >90 ML/MIN/1.7 3 M2 05/20/2025 12:30 PM [facility] Comment: NOTE: eGFR is not calculated for patients <18 years of age or gender unknown. This is an estimated GFR calculation using the new CKD EPI creatinine equation without race and so does not require a correction factor for race. This estimated GFR should not be used for calculating drug doses. 05/20/2025 11:3 7 AM RN DOCUMENT IMPROVEMENT us Kayley English MD LABORATORY Final Result [facility] [address] [place] [address], [place] [phone] * (ABNORMAL) CBC W/DIFF AUTOMATED (05/20/2025 11:37 AM RN DOCUMENT IMPROVEMENT) WBC 9.50 4.5 - 11.0 x10'3/uL 05/20/2025 12:02 PM [facility] RBC 4.97 4.20 - 5.40 x10'6/uL 05/20/2025 12:02 PM [facility] HGB 15.1 12.0 - 16.0 G/DL 05/20/2025 12:02 PM [facility] HCT 45.3 38.0 - 48.0 % 05/20/2025 12:02 PM [facility] MCV 91.1 81.0 - 99.0 FL 05/20/2025 12:02 PM [facility] MCH 30.4 27.0 - 31.0 PG 05/20/2025 12:02 PM [facility] MCHC 33.3 32.0 - 36.0 G/DL 05/20/2025 12:02 PM [facility] RDW 14.3 11.5 - 14.5 % 05/20/2025 12:02 PM [facility] PLT 319 130 - 400 x10'3/uL 05/20/2025 12:02 PM [facility] MPV 11.6 9.3 - 12.2 FL 05/20/2025 12:02 PM [facility] DIFFERENTIAL TYPE AUTOMATED DIFFERENTIAL 05/20/2025 12:02 PM [facility] NEUTROPHILS % 72.5 % 05/20/2025 12:02 PM [facility] LYMPHOCYTES % 20.7 % 05/20/2025 12:02 PM [facility] MONOCYTES % 5.3 % 05/20/2025 12:02 PM [facility] EOSINOPHILS 0.3 % 05/20/2025 12:02 PM [facility] BASOPHILS 0.6 % 05/20/2025 12:02 PM [facility] IMMATURE GRANS % 0.6 % 05/20/20 25 12:02 PM [facility] ABS. NEUTROPHILS 6.88 1.80 - 7.70 x10'3/uL 05/20/2025 12:02 PM [facility] ABS. LYMPHOCYTES 1.97 1.00 - 4.80 x10'3/uL 05/20/2025 12:02 PM [facility] ABS. MONOCYTES 0.50 0.24 - 0.86 x10'3/uL 05/20/2025 12:02 PM [facility] ABS. EOSINOPHILS 0.03(L) 0.04 - 0.36 x10'3/uL 05/20/2025 12:02 PM [facility] ABS. BASOPHILS 0.06 0.01 - 0.08 x10'3/uL 05/20/2025 12:02 PM [facility] ABS. IMMATURE GRANULOCYTES 0.06 0.00 - 0.49 x10'3/uL 05/20/2025 12:02 PM RN DOCUMENT IMPROVEMENT [facility] 05/20/2025 11:3 7 AM RN DOCUMENT IMPROVEMENT Kayley English MD LABORATORY Final Result Performing Organization Address City/[facility]/ZIP Co de Phone Number [facility] [address] [place] [address], [place] [phone] * MAGNESIUM (05/20/2025 11:37 AM RN DOCUMENT IMPROVEMENT) MAGNESIUM 2.0 1.8 - 2.4 MG/DL 05/20/2025 12:30 PM RN DOCUMENT IMPROVEMENT [facility] Comment:SLIGHT HEMOLYSIS, RE SULT MAY BE AFFECTED. 05/20/2025 11:3 7 AM RN DOCUMENT IMPROVEMENT Kayley English MD LABORATORY Final Result Performing Organization Address [facility] de Phone Number [facility] [address] [place] [address], [place] [phone] from Last 3 Months Insurance [employer] [place] Advance Directives * Full Code (Latest Code Status on File) Date Activated Date Inactivated Comments 12/27/2022 12:13 PM 12/28/2022 5:39 PM * Full Code Date Activated Date Inactivated Comments 07/04/2020 9:11 AM 07/08/2020 12:37 PM * Full Code Date Activated Date Inactivated Comments 08/29/2018 4:14 PM 09/02/2018 12:40 PM Care Teams Mobile Lounge Driver Relationship Specialty Start Date End Date None, Provider, PCP - General 03/16/21
--- NOTE | 2025-07-01 18:40 | ED_ITS ---
HPI - Back Pain/Injury General Chief Complaint: Back Pain/Injury Stated Complaint: back pain Time Seen by Provider: 07/01/25 17:43 History of Present Illness HPI Narrative: Patient with chronic neck/back pain with radiculopathy, seen by pain specialist, had recent spine steroid injections, feels like the pain has worsened over last day or 2. No focal numbness or weakness, the pain is going down both legs Related Data Allergies Allergy/AdvReac Type Severity Reaction Status Date / Time No Known Allergies Allergy Verified 07/01/25 18:48 Review of Systems Review of Systems: All systems reviewed & are unremarkable except as noted in HPI and below Exam Narrative: EXAMINATION OF ORGAN SYSTEMS/BODY AREAS: Constitutional: Vital signs per nursing GENERAL: Intermittently tearful HEAD: Normal with no signs of head trauma. EYES: EOMI, conjunctiva normal ENT: Hearing grossly intact LUNGS: Nonlabored breathing. HEART: Regular rate and rhythm ABD: Soft, nontender to palpation EXT: Normal range of motion, able to stand and sit SKIN: No rashes or lesions. NEURO: Alert. No gross focal sensory or strength deficits. No saddle anesthesia. Normal ambulation. PSYCH: Intermittently tearful affect Course Vital Signs Vital signs: Vital Signs Temperature 97.5 F L 07/01/25 16:19 Pulse Rate 87 07/01/25 16:19 Respiratory Rate 16 07/01/25 16:19 Blood Pressure 149/94 H 07/01/25 16:19 Pulse Oximetry 98 07/01/25 16:19 Temperature 97.5 F L 07/01/25 16:19 Pulse Rate 87 07/01/25 16:19 Respiratory Rate 16 07/01/25 16:19 Blood Pressure 149/94 H 07/01/25 16:19 Pulse Oximetry 98 07/01/25 16:19 [facility] MDM Narrative Medical decision making narrative: ED COURSE AND MEDICAL DECISION MAKING: [age] year old female with acute on chronic back pain. Normal motor and se nsory exam. Patient able to ambulate. No evidence of acute cord compression, osteomyelitis/discitis or cauda equina without saddle anesthesia, urinary retention/incontinence, numbness/tingling in lower extremities, fever, history of IV drug use, cancer or immunosuppression. Doubt AAA or aortic dissection without severe pain/discomfort or any neurovascular deficits. Ketorolac 15mg IM and diazepam 5mg given for symptomatic relief. I did offer CT, patient already has a recent MRI so with shared decision-making, will defer imaging at this time. Patient is given return precautions and instructed to come back at any point in time for worsening pain, fevers, weakness, difficulty walking, urinary or fecal incontinence. Follow-up information provided for by surgeon, and I will trial a course of steroids. Patient expressed understanding of instructions. Differential Diagnosis Differential Diagnosis: See above Discharge Plan Discharge Clinical Impression: Lumbar radiculopathy, Acute exacerbation of chronic low back pain Patient Disposition: Home Condition: Stable Instructions: Acute Low Back Pain (ED) Additional Instructions: Please follow up with your pain specialist and the clinical quality assurance specialist; try the medications as prescribed. You can always return for any further issues especially if you develop new numbness in between your legs, difficulty going to the bathroom, weakness to the legs or anything else concerning. Patient Language: Kenyan Prescriptions: New prednisone 20 mg tablet 40 mg PO DAILY 4 Days Qty: 8 0RF Follow-up/Referrals: PHYSICIAN NOT ON STAFF,NONSTAFF [Non-Staff] Emmie Fritz MD [Physician, Neurosurgery] - 2 Days
[2025-07-01] MEDS: oxyCODONE/ACETAMINOPHEN (*CRX) 5-325 MG TABLET 1 TABLET PO (18:49)
[2025-07-01] MEDS: KETOROLAC 30 MG/ML VIAL (*BKC) IM (18:50)
[2025-07-01] MEDS: diazePAM INJ (*CRX) 10 MG/2 ML SYRINGE 5 MG IM (18:51)
== END 2025-07-01 18:57 | disposition home or self-care (01) ==
LOC: ANHED 18:17
PROVIDERS: Emergency Provider Emergency Medicine
DX: M54.16 Radiculopathy, lumbar region (principal); G89.29 Other chronic pain; M54.50 Low back pain, unspecified
CPT/HCPCS: 96372; 99284; A9270; J1885; J3360; J7512